=== PATIENT | female | born 1960 | race Caucasian/White ===

== ENCOUNTER → 2016-12-13 | Outpatient (CLI) | payer OTHER ==
[~2016-12-13] MED LIST: ASPI81TA28 PO; BUPR75TA20 PO; CALC500C70 PO; CALCCHW57 PO; CRAN1TAB PO; DIPH25CA PO; ESCI10TA17 PO; ESOM20CA PO; FAMO20TA11 PO; FOLI1TAB7 PO; GABA-113 PO; HMLI7525 SQ; IBUP-1050 PO; LISI-729 PO; LPT40 PO; MAGN500T15 PO; METF-384 PO; METO1TAB69 PO; MGNO400; MULT-188 PO; MULT-222 PO; NAPR500T3 PO; NVLGI7030 SC; PANT40TA PO; THIA100T11 PO; ZNTT/150 PO
[2016-12-13 19:26] LABS: URINE APPEARANCE CLEAR (CLEAR); URINE BILIRUBIN NEG (NEG); URINE COLOR YELLOW; URINE NITRITE POS (NEG); URINE SPECIFIC GRAVITY 1.044 (1.000-1.030); UROBILINOGEN NEG (NEG)
[2016-12-13 19:27] LABS: MANUAL MICROSCOPIC REQUIRED? NO; REVIEW REQ? YES
[2016-12-13 19:38] LABS: URINE PATH CASTS 0-3 GRANULAR CASTS /lpf (0)
== END | disposition home or self-care (01) ==
LOC: C.LABSPEC 17:36
PROVIDERS: ATTEND Nurse Practitioner Adult Health
DX: R82.90 Unspecified abnormal findings in urine (principal)

== ENCOUNTER 2017-05-01 22:19 | Inpatient (IN) | payer OTHER ==
[~2017-05-01] VITALS: Ht 157.5 cm; Wt 87.9 kg
[~2017-05-01 22:19] MED LIST changes: -CALCCHW57 PO; -DIPH25CA PO; -ESCI10TA17 PO; -ESOM20CA PO; -FAMO20TA11 PO; -HMLI7525 SQ; -IBUP-1050 PO; -LISI-729 PO; -MAGN500T15 PO
--- NOTE | 2017-05-01 22:42 | EMERGENCY ROOM VISIT NOTE ---
History First contact with patient: 22:27 Chief Complaint: CHEST PAIN Stated Complaint: SHARP PAIN WHEN BREATHING, CENTER CHEST PAIN, WEAK History of Present Illness The patient is a 57 year old female who presents to the Emergency Room via private vehicle coming by with complaints of "sharp pain with breathing , center chest, weak". The patient states that she has had indigestion type sensation in the chest after eating for the past one month. She states that tonight, her symptoms were different when around 8:30 she was in bathing, when she developed substernal chest pain, similar to indigestion however she was accompanied by weakness, as well as nausea. She is concerned because her had a heart attack recently, and she is also diabetic, has high blood pressure and high cholesterol. The pain is worse with a deep breath. The pain has slightly subsided, and rates the current substernal chest pain as a 3/10. She did take an 81 mg aspirin today. Review of Systems A complete 10-point Review of Systems was discussed with the patient, with pertinent positives and negatives listed in the History of Present Illness. All remaining Review of Systems questions can be considered negative unless otherwise specified. Past Medical/Surgical History Medical Problems: (1) Backache Nos (2) Diabetes (3) Heart disease (4) Hyperlipidemia (5) Hypertension (6) Idiopathic Scoliosis Family History Cancer Diabetes mellitus Heart disease Hypertension Lung disease Social History Smoking Status: Never Smoker Alcohol Use: heavy Marital Status: Housing Status: lives with family Occupation Status: employed Current/Historical Medications Scheduled Aspirin (Aspirin Ec), 81 MG PO QAM Atorvastatin (Atorvastatin Calcium), 40 MG PO HS Calcium Carbonate-Vitamin D W/ (Calcium 1200), 1 TAB PO DAILY Cranberry (Vaccinium Macrocarp (Cranberry), 125 MG PO DAILY Diphenhydramine Hcl (Allergy Relief), 2 CAP PO DAILY Escitalopram (Lexapro), 10 MG PO HS Esomeprazole Magnesium (Nexium), 20 MG PO DAILY Famotidine (Pepcid), 20 MG PO HS Gabapentin (Neurontin), 600 MG PO TID Insulin Lispro 75/25 (Humalog Mix 75/25), 21 UNITS SQ QAM Insulin Lispro 75/25 (Humalog Mix 75/25), 26 UNITS SQ QPM Lisinopril (Zestril), 5 MG PO DAILY Magnesium (Magnesium), 1 TAB PO DAILY Metformin Hcl (Glucophage), 1,000 MG PO BIDM Metoprolol Succ (Toprol Xl) (Toprol-Xl ), 100 MG PO QPM Multiple Vitamins W/ Minerals (Multi For Her), 1 TAB PO DAILY Scheduled PRN Ibuprofen (Advil), 400 MG PO Q6 PRN for Pain Physical Exam Vital Signs Date Time Temp Pulse Resp B/P (MAP) Pulse Ox O2 Delivery O2 Flow Rate FiO2 05/01/17 23:34 75 18 94 05/01/17 23:31 111/66 05/01/17 23:19 78 20 93 05/01/17 23:04 86 22 93 05/01/17 23:01 131/85 05/01/17 22:58 81 05/01/17 22:56 124/84 05/01/17 22:23 36.4 82 20 134/79 95 Room Air Physical Exam VITAL SIGNS - Vital signs and nursing notes were reviewed. Afebrile, normotensive, non-tachycardic and saturating well on room air 95%. GENERAL -57-year-old female appearing her stated age who is in no acute distress. Communicates well with provider and answers questions appropriately. SKIN - Without rashes. No petechial rashes. HEAD - NC/AT. EYES - PERRL with EOMI bilaterally. Sclera anicteric. EARS - No deformities of external structures noted on gross examination bilaterally. NOSE - Midline and without cyanosis. No epistaxis or purulent drainage noted. MOUTH/OROPHARYNX - Without perioral cyanosis. No evidence of ketone odor. LUNGS - Chest wall symmetric without accessory muscle use, intercostals retractions, or central cyanosis. Normal vesicular breath sounds CTA B/L. No wheezes, rales, or rhonchi appreciated. CARDIAC - RRR with S1/S2. No murmur, rubs, or gallops appreciated. ABDOMEN - Abdominal contour without pulsations or visible masses. BS normoactive all four quadrants. No tenderness, palpable masses, hepatosplenomegaly, or ascites noted. EXTREMITIES - No clubbing or peripheral cyanosis. NEUROLOGIC - Cranial nerves II through XII grossly intact. PSYCH - A&O.Pt is very pleasant and interacts well with examiner. Medical Decision & Procedures ER Provider Diagnostic Interpretation: CHEST ONE VIEW PORTABLE CLINICAL HISTORY: Chest pain dyspnea COMPARISON STUDY: 02/15/2016 FINDINGS: The bones soft tissues and hemidiaphragms are normal. The cardiomediastinal silhouette is normal. The lungs are clear. The pulmonary vasculature is normal. IMPRESSION: Negative chest. The above report was generated using voice recognition software. It may contain grammatical, syntax or spelling errors. Electronically signed by: Kian Damon M.D. 05/01/2017 10:50 PM Dictated Date/Time: 05/01/2017 10:50 PM Laboratory Results 05/01/17 23:10 Red Blood Count 4.76, Mean Corpuscular Volume 87.0, Mean Corpuscular Hemoglobin 28.6, Mean Corpuscular Hemoglobin Concent 32.9, Mean Platelet Volume 12.2, Neutrophils (%) (Auto) 59.2, Lymphocytes (%) (Auto) 30.4, Monocytes (%) (Auto) 7.0, Eosinophils (%) (Auto) 2.9, Basophils (%) (Auto) 0.3, Neutrophils # (Auto) 5.74, Lymphocytes # (Auto) 2.95, Monocytes # (Auto) 0.68, Eosinophils # (Auto) 0.28, Basophils # (Auto) 0.03 05/01/17 23:10 Test 05/01/17 23:10 05/01/17 23:13 White Blood Count 9.70 K/uL (4.8-10.8) Red Blood Count 4.76 M/uL (4.2-5.4) Hemoglobin 13.6 g/dL (12.0-16.0) Hematocrit 41.4 % (37-47) Mean Corpuscular Volume 87.0 fL (80-100) Mean Corpuscular Hemoglobin 28.6 pg (25-34) Mean Corpuscular Hemoglobin Concent 32.9 g/dl (32-36) Platelet Count 251 K/uL (130-400) Mean Platelet Volume 12.2 fL (7.4-10.4) Neutrophils (%) (Auto) 59.2 % Lymphocytes (%) (Auto) 30.4 % Monocytes (%) (Auto) 7.0 % Eosinophils (%) (Auto) 2.9 % Basophils (%) (Auto) 0.3 % Neutrophils # (Auto) 5.74 K/uL (1.4-6.5) Lymphocytes # (Auto) 2.95 K/uL (1.2-3.4) Monocytes # (Auto) 0.68 K/uL (0.11-0.59) Eosinophils # (Auto) 0.28 K/uL (0-0.5) Basophils # (Auto) 0.03 K/uL (0-0.2) RDW Standard Deviation 40.8 fL (36.4-46.3) RDW Coefficient of Variation 12.7 % (11.5-14.5) Immature Granulocyte % (Auto) 0.2 % Immature Granulocyte # (Auto) 0.02 K/uL (0.00-0.02) Anion Gap 8.0 mmol/L (3-11) Est Creatinine Clear Calc Drug Dose 77.8 ml/min Estimated GFR () 93.5 Estimated GFR (Non- 80.7 BUN/Creatinine Ratio 18.8 (10-20) Calcium Level 9.5 mg/dl (8.5-10.1) Magnesium Level 1.5 mg/dl (1.8-2.4) Total Bilirubin 0.3 mg/dl (0.2-1) Aspartate Amino Transf (AST/SGOT) 12 U/L (15-37) Alanine Aminotransferase (ALT/SGPT) 24 U/L (12-78) Alkaline Phosphatase 116 U/L (45-117) Total Protein 7.1 gm/dl (6.4-8.2) Albumin 3.6 gm/dl (3.4-5.0) Globulin 3.5 gm/dl (2.5-4.0) Albumin/Globulin Ratio 1.0 (0.9-2) Thyroid Stimulating Hormone (TSH) 2.640 uIu/ml (0.300-4.500) Bedside Troponin I < 0.030 ng/ml (0-0.045) Medical Decision Patient was seen and evaluated as above. After obtaining a thorough history and physical examination IV access was initiated, and the above workup was performed. She presents to us today with chest pain. History is concerning for that of reflux, and ACS. Initial troponin is 0.00. Bedside EKG reveals normal sinus rhythm. This was at a rate of 73 bpm. No ectopy or ischemic change. Previous record was reviewed, and she has an EF around 30% as of 2016 test.. She has history of hypertension, high cholesterol as well as diabetes. Her glucose here is 437. 10 units of insulin were ordered. GI cocktail was ordered. CBC reveals no leukocytosis or anemia. CMP reveals no concerning electrolyte abnormality. Magnesium is low at 1.5. TSH unremarkable. Chest x- ray negative for acute process. Radiology results as above. Her underlying comorbidities, to include hypertension, high cholesterol, diabetes and EF 30% is concerning that for potential cardiac event, therefore do believe that inpatient management is warranted. The case was discussed with ED attending physician, and subsequently the hospitalist. Please refer to further documentation regarding her care. In evaluation treatment this patient the following differential diagnoses entertained: DKA, NC, PE, GERD, among others. Impression Primary Impression: Chest wall pain Additional Impression: Hyperglycemia Departure Information Dispostion Admitted as an inpatient Condition FAIR Referrals Whit Kline DO (PCP) Patient Instructions [facility] Problem Qualifiers
--- NOTE | 2017-05-01 22:51 | DIAGNOSTIC IMAGING REPORT ---
CHEST ONE VIEW PORTABLE CLINICAL HISTORY: Chest pain dyspnea COMPARISON STUDY: 02/15/2016 FINDINGS: The bones soft tissues and hemidiaphragms are normal. The cardiomediastinal silhouette is normal. The lungs are clear. The pulmonary vasculature is normal. IMPRESSION: Negative chest. The above report was generated using voice recognition software. It may contain grammatical, syntax or spelling errors. Electronically signed by: Kian Damon M.D. 05/01/2017 10:50 PM Dictated Date/Time: 05/01/2017 10:50 PM
[2017-05-01] MEDS ORDERED: DIPH25CA PO (23:06)
[2017-05-01] MEDS ORDERED: FAMO20TA11 PO (23:06)
[2017-05-01] MEDS ORDERED: ESOM20CA PO (23:06)
[2017-05-01] MEDS ORDERED: LISI-729 PO (23:06)
[2017-05-01] MEDS ORDERED: ESCI10TA17 PO (23:06)
[2017-05-01] MEDS ORDERED: CALCCHW57 PO (23:06)
[2017-05-01] MEDS ORDERED: HMLI7525 SQ ×2 (23:06)
[2017-05-01] MEDS ORDERED: IBUP-1050 PO (23:06)
[2017-05-01] MEDS ORDERED: MAGN500T15 PO (23:06)
[2017-05-01 23:21] LABS: BASO % 0.3 %; BASO ABS # 0.03 K/uL (0-0.2); COMPLETE YES; EOS % 2.9 %; HEMATOCRIT 41.4 % (37-47); IG% 0.2 %; LYMPH % 30.4 %; LYMPH ABS # 2.95 K/uL (1.2-3.4); MEAN CORPUSCULAR HEMOGLOBIN 28.6 pg (25-34); MEAN CORPUSCULAR HGB CONC 32.9 g/dl (32-36); MEAN PLATELET VOLUME 12.2 fL (7.4-10.4); NEUT % 59.2 %; PLATELET COUNT 251 K/uL (130-400); RED BLOOD COUNT 4.76 M/uL (4.2-5.4)
[2017-05-01] MEDS ORDERED: GI COCKTAIL PO STA (23:48)
[2017-05-01 23:52] LABS: BUN/CREATININE RATIO 18.8 (10-20); CALCIUM 9.5 mg/dl (8.5-10.1); CREATININE 0.8 mg/dl (0.60-1.20); MAGNESIUM 1.5 mg/dl (1.8-2.4); POTASSIUM 4.6 mmol/L (3.5-5.1); THYROID STIMULATING HORMONE 2.64 uIu/ml (0.300-4.500)
[2017-05-02] MEDS ORDERED: NovoLIN-R INSULIN PER UNIT CHARGE IV STA (00:01)
[2017-05-02] MEDS ORDERED: INSULIN HUMAN REGULAR PER UNIT 10 UNITS in SYRINGE 9.9 ML IV STA (00:19)
[2017-05-02] MEDS ORDERED: ALUMINUM/MAGNESIUM SUSP 30 ML UDC ONE (00:20)
[2017-05-02] MEDS ORDERED: LIDOCAINE HCL 2% VISC SOLN 20 ML UDC ONE (00:20)
[2017-05-02] MEDS ORDERED: MAGNESIUM HYDROXIDE SUSP 30 ML UDC PO PRN (00:30)
[2017-05-02] MEDS ORDERED: POLYETHYLENE (MIRALAX) 17 GM PACK PO PRN (00:30)
[2017-05-02] MEDS ORDERED: ONDANSETRON INJ 2 MG/ML 2 ML VIAL IV PRN (00:30)
[2017-05-02] MEDS ORDERED: ACETAMINOPHEN 325 MG TAB PO PRN (00:30)
[2017-05-02] MEDS ORDERED: ZOLPIDEM TARTRATE 5 MG TAB PO PRN (00:30)
[2017-05-02] MEDS ORDERED: ALUMINUM/MAGNESIUM/SIMETH (MAALOX MAX) 30 ML UDC PO PRN (00:30)
[2017-05-02] MEDS ORDERED: NITROGLYCERIN 0.4 MG SL PER TAB CHARGE SL PRN (00:30)
--- NOTE | 2017-05-02 00:44 | History and Physical ---
History & Physical Date & Time of Service: May 02, 2017 at 00:36 Chief Complaint: Sharp Pain When Breathing, Center Chest Pain, Weak Primary Care Physician: Whit Kline DO History of Present Illness Source: patient, spouse Mrs Rachel is a 57-year-old female with hypertension, diabetes, history of nonischemic cardiomyopathy in 2016 who presents with chest pain earlier today. She reports it was sudden onset, occurred while she was at rest, did not radiate , and felt sharp and severe. She feels that nothing given in the ER he has worked. She thinks it is worse than her usual indigestion pain, which is been going on for the last month. She reports she has also been very bad about taking her insulin in general, and was not surprised that her sugar was over 400. She is concerned that she did have a heart attack as her recently had one, and she has risk factors as noted above. She reports her mom also had heart disease and from CHF. In the last admission in 2015, she was in DKA and her ejection fraction was found to be 30%. 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 She does follow with Dr. Coy and is meant to see him in May. She reports she has not had an echocardiogram recently. Past Medical/Surgical History Medical Problems: (1) Backache Nos Status: Chronic (2) Diabetes Status: Chronic (3) Heart disease Status: Chronic (4) Hyperlipidemia Status: Chronic (5) Hypertension Status: Chronic (6) Idiopathic Scoliosis Status: Chronic Past surgical history: none Family History Cancer Diabetes mellitus Heart disease Hypertension Lung disease Social History Smoking Status: Never Smoker Smokeless Tobacco Use: No Alcohol Use: none Drug Use: none Marital Status: Housing status: lives with family Occupational Status: employed Immunizations History of Influenza Vaccine: Unknown History of Tetanus Vaccine?: Unknown History of Pneumococcal: Unknown History of Hepatitis B Vaccine: Unknown Multi-Drug Resistant Organisms History of MDRO: No Allergies Coded Allergies: No Known Allergies (Unverified , 02/23/16) Home Medications Scheduled Aspirin (Aspirin Ec), 81 MG PO QAM Atorvastatin (Atorvastatin Calcium), 40 MG PO HS Calcium Carbonate-Vitamin D W/ (Calcium 1200), 1 TAB PO DAILY Cranberry (Vaccinium Macrocarp (Cranberry), 125 MG PO DAILY Diphenhydramine Hcl (Allergy Relief), 2 CAP PO DAILY Escitalopram (Lexapro), 10 MG PO HS Esomeprazole Magnesium (Nexium), 20 MG PO DAILY Famotidine (Pepcid), 20 MG PO HS Gabapentin (Neurontin), 600 MG PO TID Insulin Lispro 75/25 (Humalog Mix 75/25), 21 UNITS SQ QAM Insulin Lispro 75/25 (Humalog Mix 75/25), 26 UNITS SQ QPM Lisinopril (Zestril), 5 MG PO DAILY Magnesium (Magnesium), 1 TAB PO DAILY Metformin Hcl (Glucophage), 1,000 MG PO BIDM Metoprolol Succ (Toprol Xl) (Toprol-Xl ), 100 MG PO QPM Multiple Vitamins W/ Minerals (Multi For Her), 1 TAB PO DAILY Scheduled PRN Ibuprofen (Advil), 400 MG PO Q6 PRN for Pain Review of Systems See HPI for pertinent positives & negatives. A total of 10 systems reviewed and were otherwise negative. Physical Exam Vital Signs Date Time Temp Pulse Resp B/P (MAP) Pulse Ox O2 Delivery O2 Flow Rate FiO2 05/02/17 00:24 77 15 93 05/02/17 00:09 80 20 94 05/02/17 00:01 113/99 05/01/17 23:54 80 14 93 05/01/17 23:39 75 20 94 05/01/17 23:34 75 18 94 05/01/17 23:31 111/66 05/01/17 23:19 78 20 93 05/01/17 23:04 86 22 93 05/01/17 23:01 131/85 05/01/17 22:58 81 05/01/17 22:56 124/84 05/01/17 22:23 36.4 82 20 134/79 95 Room Air General Appearance: WD/WN, no apparent distress Head: normocephalic, atraumatic Eyes: normal inspection, PERRL ENT: hearing grossly normal Neck: supple, no JVD Respiratory/Chest: lungs clear, normal breath sounds, no respiratory distress Cardiovascular: regular rate, rhythm, no murmur Abdomen/GI: normal bowel sounds, non tender, soft Back: no CVA tenderness, no muscle spasm, normal range of motion Extremities/Musculoskelatal: no calf tenderness, no pedal edema Neurologic/Psych: alert, normal mood/affect, oriented x 3 Skin: no rash Diagnostics Laboratory Results Results Past 24 Hours Test 05/01/17 23:10 05/01/17 23:13 Range/Units White Blood Count 9.70 4.8-10.8 K/uL Red Blood Count 4.76 4.2-5.4 M/uL Hemoglobin 13.6 12.0-16.0 g/dL Hematocrit 41.4 37-47 % Mean Corpuscular Volume 87.0 80-100 fL Mean Corpuscular Hemoglobin 28.6 25-34 pg Mean Corpuscular Hemoglobin Concent 32.9 32-36 g/dl Platelet Count 251 130-400 K/uL Mean Platelet Volume 12.2 7.4-10.4 fL Neutrophils (%) (Auto) 59.2 % Lymphocytes (%) (Auto) 30.4 % Monocytes (%) (Auto) 7.0 % Eosinophils (%) (Auto) 2.9 % Basophils (%) (Auto) 0.3 % Neutrophils # (Auto) 5.74 1.4-6.5 K/uL Lymphocytes # (Auto) 2.95 1.2-3.4 K/uL Monocytes # (Auto) 0.68 0.11-0.59 K/uL Eosinophils # (Auto) 0.28 0-0.5 K/uL Basophils # (Auto) 0.03 0-0.2 K/uL RDW Standard Deviation 40.8 36.4-46.3 fL RDW Coefficient of Variation 12.7 11.5-14.5 % Immature Granulocyte % (Auto) 0.2 % Immature Granulocyte # (Auto) 0.02 0.00-0.02 K/uL Sodium Level 137 136-145 mmol/L Potassium Level 4.6 3.5-5.1 mmol/L Chloride Level 98 98-107 mmol/L Carbon Dioxide Level 31 21-32 mmol/L Anion Gap 8.0 3-11 mmol/L Blood Urea Nitrogen 15 7-18 mg/dl Creatinine 0.80 0.60-1.20 mg/dl Est Creatinine Clear Calc Drug Dose 77.8 ml/min Estimated GFR () 93.5 Estimated GFR (Non- 80.7 BUN/Creatinine Ratio 18.8 10-20 Random Glucose 437 70-99 mg/dl Calcium Level 9.5 8.5-10.1 mg/dl Magnesium Level 1.5 1.8-2.4 mg/dl Total Bilirubin 0.3 0.2-1 mg/dl Aspartate Amino Transf (AST/SGOT) 12 15-37 U/L Alanine Aminotransferase (ALT/SGPT) 24 12-78 U/L Alkaline Phosphatase 116 45-117 U/L Total Protein 7.1 6.4-8.2 gm/dl Albumin 3.6 3.4-5.0 gm/dl Globulin 3.5 2.5-4.0 gm/dl Albumin/Globulin Ratio 1.0 0.9-2 Thyroid Stimulating Hormone (TSH) 2.640 0.300-4.500 uIu/ml Bedside Troponin I < 0.030 0-0.045 ng/ml CXR normal Normal EKG Impression Assessment and Plan 57 yo F with risk factors for cardiac disease including poorly controlled diabetes & hypertension who presents with chest pain - differential is ACS versus GERD Chest pain - Trend cardiac enzymes - Telemetry monitoring - EKG in AM - Continue daily aspirin, Beta katerina, and KOKO-I, and statin History of cardiomyopathy - Repeat echocardiogram in the a.m. Type 2 diabetes - She is on Insulin 75/25 at home, we will hold this for now - Hold Metformin - Lantus 15 units BID w/Novolog sliding scale per calculator - Check HbA1c - Diabetes education - Continue gabapentin for neuropathy Hypertension - Continue Toprol XL and Lisinopril GERD - Continue Pepcid - Just received GI cocktail in ED, waiting to see if it worked VTE: Heparin CODE STATUS: Full DISPO: Tele Attending Addendum: I have physically seen and examined this patient, have supervised the medical residents activities, and agree with the H&P as noted above with the following exceptions as noted. The patient is awake, well-developed and adequately nourished, alert and oriented 3, normocephalic and atraumatic, lying in bed and in no acute distress. HEENT--PERRL, EOMI, mucous membranes and oropharynx normal. Neck--supple, no JVD or bruits, thyroid normal, trachea midline, no adenopathy. Heart--normal S1 and S2, no extra beats, no murmurs, rubs or gallops. Lungs--clear bilaterally but decreased breath sounds throughout, no respiratory distress, no accessory muscle use. Abdomen--normal bowel sounds and soft, nontender and nondistended, no hernias or masses, no organomegaly. Extremities--no cyanosis, clubbing or edema. There are good distal pulses b/l. Dermatologic--normal skin turgor, normal color, warm and dry, no abnormal lymph nodes, no rash. Neurologic--cranial nerves II through XII grossly intact, motor and sensory examination normal. Rheumatologic--normal range of motion, nontender, muscles and joints. Psychiatric--normal affect. Assessment and Plan: 1. Precordial chest pain/cardiomyopathy/systolic heart dysfunction with ejection fraction 30%--The patient will be admitted to telemetry for serial cardiac enzymes, cardiac rhythm monitoring and a 2-D echocardiogram with Dopplers. Continue aspirin 81 mg by mouth every morning, lisinopril 5 mg by mouth daily, magnesium daily, metoprolol succinate 100 mg by mouth every afternoon. 2. Poorly controlled diabetes mellitus--the patient admittedly is poor with her diet, does not check her blood sugars frequently enough, and does not take her insulin regularly. She does have admission for DKA last year. Long discussion with the patient regarding the likely possibilities of stroke, heart attack, renal failure requiring dialysis, loss of limb, and premature if she does not make more of an effort to control her diabetes. Current dose of insulin is Humalog mix 7525 21 units subcutaneous in the a.m. 26 units subcutaneous in the p.m. Hold metformin 1000 mg by mouth twice a day. Check hemoglobin A1c. Place on Accu-Cheks before meals and at bedtime with NovoLog coverage per scale. 3. Hyperlipidemia--continue atorvastatin 40 mg by mouth at bedtime, and check a fasting lipid profile. 4. GPN--continue gabapentin 600 mg by mouth 3 times a day. 5. GERD--change Nexium 20 mg by mouth daily to pantoprazole 40 mg by mouth daily and continue famotidine 20 mg by mouth at bedtime. Suspect patient has acute on chronic diabetic gastroparesis associated with poorly controlled diabetes. 6. Depression--continue Lexapro 10 mg by mouth at bedtime. In light of the patient's poor attention to her diabetes mellitus, the dosing of this medication may need to be increased and/or consideration should be given to counseling. Level of Care Telemetry Advanced Directives Existing Advance Directive: No Existing Living Will: No Existing Power of Nail Professional: No Resuscitation Status FULL RESUSCITATION VTE Prophylaxis VTE Risk Assessment Done? Y/N: Yes Risk Level: Moderate Given or contraindicated: SCD's Social Service Consult None Apply Resident Tracking Resident Involvement: Resident Care Provided Care Provided: Adult Hospital Medicine
[2017-05-02] MEDS ORDERED: DEXTROSE 50% 50 ML SYR IV PRN (00:45)
[2017-05-02] MEDS ORDERED: GLUCOSE 10 TABS/TUBE PO PRN (00:45)
[2017-05-02] MEDS ORDERED: GLUCAGON FOR INJ 1 MG VIAL SQ PRN (00:45)
[2017-05-02] MEDS ORDERED: GLUCOSE 40% GEL 15 GM TUBE PO PRN (00:45)
[2017-05-02 00:48] LABS: BETA-HYDROXYBUTYRATE 3.62 mg/dL (0.2-2.81)
[2017-05-02 01:05] VITALS: BP 121/75; PULSE 82; TEMP 36.5; O2SAT 97; BMI 35.0
[2017-05-02 04:36] VITALS: BP 121/57; PULSE 74; TEMP 37.4; O2SAT 95
[2017-05-02 07:06] LABS: PROTHROMBIN TIME (PATIENT) 10.4 SECONDS (9.0-12.0)
[2017-05-02 07:21] LABS: CKMB/CK RATIO 1.3 (0-3.0)
[2017-05-02 07:33] VITALS: BP 129/77; PULSE 75; TEMP 36.5; O2SAT 98
[2017-05-02] MEDS: INSULIN ASPART 100 UNITS/ML 3 ML PEN SC SCH ×3 (08:26→16:41)
[2017-05-02] MEDS: GABAPENTIN 300 MG CAP PO SCH ×2 (08:27→14:03)
[2017-05-02] MEDS ORDERED: CRANBERRY PO SCH (09:00)
[2017-05-02] MEDS ORDERED: PANTOprazole SOD 40 MG TAB PO SCH (09:00)
[2017-05-02] MEDS ORDERED: CALCIUM 600MG + VIT D 400 IU TAB PO SCH (09:00)
[2017-05-02] MEDS ORDERED: INSULIN GLARGINE SOLOSTAR 100 UNITS/ML 3 ML PEN SC SCH (09:00)
[2017-05-02] MEDS ORDERED: LISINOPRIL 5 MG TAB PO SCH (09:00)
[2017-05-02] MEDS ORDERED: MAGNESIUM OXIDE 400 MG TAB PO SCH (09:00)
[2017-05-02] MEDS ORDERED: ASPIRIN 81 MG ECTAB PO SCH (09:00)
--- NOTE | 2017-05-02 09:53 | Discharge Instructions ---
Discharge Instructions Date of Service May 02, 2017. Admission Reason for Admission: Chest Pain, History Of Cardiomyopathy Discharge Discharge Diagnosis / Problem: Gastroesophageal Reflux; Non-cardiac chest pain Discharge Goals Goal(s): Improve function, Improve nutritional status, Prevent Disease Progression Activity Recommendations Activity Limitations: resume your previous activity Lifting Limitations: none Exercise/Sports Limitations: as tolerated Shower/Bathe: no limitations . Instructions / Follow-Up Instructions / Follow-Up You came to the emergency room for chest discomfort that has been persistent for 1 month. Your EKG was normal. We checked your heart enzymes which were fortunately normal and make a heart attack unlikely. Because you have a history of congestive heart failure, we did re-check and echocardiogram which was also fortunately normal. As such you can be discharged back to the care of your primary doctor. Please keep your regular appointment with your cardiology in May. We did note that you blood sugars were elevated when you came in. After discussing this with you, you noted that you do not take your insulin as your are suppose to. Uncontrolled diabetes carries high risk of vascular disease if not controlled including stroke, vision loss, heart disease, kidney disease and neuropathy. We strongly encourage that you take your medications as directed daily. More importantly however is dietary discretion, particularly limiting portion sizes of carbohydrates like bread and pasta and substituting them with fibre rich fruits and vegetables. Medicines can help you control your diabetes but lifestyle and diet are equally important and both work [id number]. As you go home please check your blood sugars at least twice a day, once in the morning before you eat any food and one 2 hours after you have a meal. Your morning sugar should be less than 120 and your sugar 2-hours after meals should be less than 180, and even better less than 150. Keep a log of your blood sugars and bring them with you to your family physician. Given your recent issues with reflux that is not controlled on multiple medications, we will make a referral for you to have an upper endoscopy by our gastroenterology. You will be contacted to schedule this appointment. If your symptoms fail to improve, acutely worsen, please seek medical attention immediately by either calling your primary care provider or going to your nearest emergency department. Otherwise, please see your primary care provider in 3-5 days to ensure that your symptoms continue to improve. Current Hospital Diet Patient's current hospital diet: Diabetes Type 2 Diet Discharge Diet Recommended Diet: Low Sodium Diet (2gm Na), Diabetes Type 2 Diet Procedures Procedures Performed: Echocardiogram Interpretation Summary Name: SHAQUILLE MCINTOSH Study Date: 05/02/2017 06:39 AM BP: 121/57 mmHg Patient Location: [id number] HR: 74 : 1960 (M/d/yyyy) Gender: Female Height: 62 in Age: 57 yrs Ethnicity: [place] Weight: 193 lb Ordering Physician: Lilia Johnson Referring Physician: Self, Referred Performed By: Cynthia Osei RDCS Reason For Study: HX OF CARDIOMYOPATHY BSA: 1.9 m2 Normal biventricular systolic function. Mild concentric left ventricular hypertrophy. Type 1 left ventricular diastolic dysfunction. Normal chamber dimensions. No significant valvular abnormalities. Pending Studies Studies pending at discharge: no Medical Emergencies . Who to Call and When: Medical Emergencies: If at any time you feel your situation is an emergency, please call 911 immediately. . Non-Emergent Contact Non-Emergency issues call your: Primary Care Provider Call Non-Emergent contact if: your pain is not controlled, your pain is worsening, your pain is concerning you . . "Provider Documentation" section prepared by Austin Jung. . VTE Core Measure Inpt VTE Proph given/why not?: SCD's
[2017-05-02 10:55] VITALS: BP 115/59; PULSE 85; TEMP 37.2; O2SAT 94
[2017-05-02 11:28] VITALS: Ht 157.5 cm; Wt 87.9 kg
--- NOTE | 2017-05-02 13:57 | ECHOCARDIOGRAM REPORT ---
*NOTICE TO RECEIVING LIBERTARIAN AGENCY This information is strictly Confidential and protected under [place] law. [place] law prohibits you from making any further disclosure of this information unless further disclosure is expressly permitted by the written consent of the person to whom it pertains or is authorized by law. A general authorization for the release of medical or other information is not sufficient for this purpose. Hospital accepts no responsibility if the information is made available to any other person, INCLUDING THE PATIENT. Interpretation Summary * Name: SHAQUILLE MCINTOSH Study Date: 05/02/2017 06:39 AM BP: 121/57 mmHg * Patient Location: C.2E\S\E203\S\1 HR: 74 * : 1960 (M/d/yyyy) Gender: Female Height: 62 in * Age: 57 yrs Ethnicity: CA Weight: 193 lb * Ordering Physician: Lilia Johnson * Referring Physician: Self, Referred * Performed By: Cynthia Osei RDCS * * Reason For Study: HX OF CARDIOMYOPATHY * BSA: 1.9 m2 * Normal biventricular systolic function. * Mild concentric left ventricular hypertrophy. * Type 1 left ventricular diastolic dysfunction. * Normal chamber dimensions. * No significant valvular abnormalities. Procedure Details * A complete two-dimensional transthoracic echocardiogram was performed (2D, M-mode, Doppler and color flow Doppler). Left Ventricle * The left ventricle is normal in size. * There is mild concentric left ventricular hypertrophy. * Ejection Fraction = 55-60%. * Left ventricular systolic function is normal. * A full diastolic examination was done with clinical findings of Class I diastolic dysfunction. * The left ventricular wall motion is normal. Right Ventricle * The right ventricle is normal in size and function. * The right ventricular systolic function is normal as assessed by tricuspid annular plane systolic excursion (TAPSE) (normal >1.5 cm). Atria * The left atrial size is normal. * Right atrial size is normal. * No ASD detected; PFO is not assessed. Mitral Valve * The mitral valve is normal. * There is no mitral valve stenosis. * There is trace mitral regurgitation. Tricuspid Valve * The tricuspid valve is normal. * There is no tricuspid stenosis. * No tricuspid regurgitation. Aortic Valve * The aortic valve is trileaflet. * The aortic valve opens well. * Aortic stenosis is absent. * No aortic regurgitation is present. Pulmonic Valve * The pulmonic valve is not well seen, but is grossly normal. * There is no pulmonic valvular stenosis. * There is no pulmonic valvular regurgitation. Great Vessels * The aortic root is normal size. Pericardium/Pleural * There is no pericardial effusion. Great Vessels * Normal inferior vena cava diameter and respiratory variation suggests normal central venous pressure. MMode 2D Measurements and Calculations IVSd 1.2 cm IVSs 1.3 cm LVIDd 4.4 cm LVIDs 3.2 cm LVPWd 1.2 cm LVPWs 1.6 cm IVS/LVPW 0.96 FS 27.6 % EDV(Teich) 88.9 ml ESV(Teich) 41.2 ml EF(Teich) 53.7 % EDV(cubed) 86.7 ml ESV(cubed) 33.0 ml EF(cubed) 62.0 % % IVS thick 8.1 % % LVPW thick 34.8 % LV mass(C)d 190.1 grams LV mass(C)dI 101.0 grams/m\S\2 LV mass(C)s 161.5 grams LV mass(C)sI 85.8 grams/m\S\2 SV(Teich) 47.8 ml SI(Teich) 25.4 ml/m\S\2 SV(cubed) 53.8 ml SI(cubed) 28.6 ml/m\S\2 Ao root diam 2.5 cm Ao root area 5.1 cm\S\2 LA dimension 3.2 cm LA/Ao 1.3 LVAd ap4 26.8 cm\S\2 LVLd ap4 7.5 cm EDV(MOD-sp4) 77.3 ml EDV(sp4-el) 81.2 ml LVAs ap4 16.4 cm\S\2 LVLs ap4 6.5 cm ESV(MOD-sp4) 36.0 ml ESV(sp4-el) 35.0 ml EF(MOD-sp4) 53.4 % EF(sp4-el) 56.9 % LVAd ap2 24.9 cm\S\2 LVLd ap2 7.5 cm EDV(MOD-sp2) 66.1 ml EDV(sp2-el) 70.0 ml LVAs ap2 14.7 cm\S\2 LVLs ap2 6.2 cm ESV(MOD-sp2) 28.7 ml ESV(sp2-el) 29.6 ml EF(MOD-sp2) 56.6 % EF(sp2-el) 57.7 % LVLd %diff -0.32 % EDV(MOD-bp) 72.0 ml LVLs %diff -5.29 % ESV(MOD-bp) 31.8 ml EF(MOD-bp) 55.9 % SV(MOD-sp4) 41.2 ml SI(MOD-sp4) 21.9 ml/m\S\2 SV(MOD-sp2) 37.4 ml SI(MOD-sp2) 19.9 ml/m\S\2 SV(MOD-bp) 40.3 ml SI(MOD-bp) 21.4 ml/m\S\2 SV(sp4-el) 46.2 ml SI(sp4-el) 24.5 ml/m\S\2 SV(sp2-el) 40.4 ml SI(sp2-el) 21.4 ml/m\S\2 Doppler Measurements and Calculations MV E max reggie 73.7 cm/sec MV A max reggie 82.5 cm/sec MV E/A 0.89 MV dec time 0.26 sec Ao V2 max 142.5 cm/sec Ao max PG 8.1 mmHg Ao max PG (full) 4.7 mmHg LV V1 max PG 3.4 mmHg LV V1 max 92.6 cm/sec
[2017-05-02] MEDS ORDERED: HEPARIN SOD 5000 UNIT/0.5 ML CARP SQ SCH (14:00)
[2017-05-02 15:20] VITALS: BP 105/63; PULSE 79; TEMP 36.9; O2SAT 97
[2017-05-02 17:52] VITALS: BP 105/63; PULSE 79; TEMP 36.9; O2SAT 97
--- NOTE | 2017-05-02 19:03 | Discharge Summary ---
Discharge Summary Date of Service May 02, 2017. Discharge Summary Admission Date: May 02, 2017 at 00:32 Discharge Date: May 02, 2017 Discharge Disposition: Home Principal Diagnosis: Non-cardiac chest pain, GERD Problems/Secondary Diagnoses: History of non-ischemic cardiomyopathy Immunizations: Have You Had Influenza Vaccine: Unknown History of Tetanus Vaccine?: Unknown History of Pneumococcal: Unknown History of Hepatitis B Vaccine: Unknown Procedures: Interpretation Summary * Name: SHQAUILLE MCINTOSH Study Date: 05/02/2017 06:39 AM BP: 121/57 mmHg * Patient Location: .2E\S\E203\S\1 HR: 74 * : 1960 (M/d/yyyy) Gender: Female Height: 62 in * Age: 57 yrs Ethnicity: CA Weight: 193 lb * Ordering Physician: Lilia Johnson * Referring Physician: Self, Referred * Performed By: Cynthia Osei RDCS * * Reason For Study: HX OF CARDIOMYOPATHY * BSA: 1.9 m2 * Normal biventricular systolic function. * Mild concentric left ventricular hypertrophy. * Type 1 left ventricular diastolic dysfunction. * Normal chamber dimensions. * No significant valvular abnormalities. Medication Reconciliation Continued Medications: Aspirin (Aspirin Ec) 81 Mg Tab 81 MG PO QAM Atorvastatin (Atorvastatin Calcium) 40 Mg Tab 40 MG PO HS Calcium Carbonate-Vitamin D W/ (Calcium 1200) 1 Chw Chw 1 TAB PO DAILY Cranberry (Vaccinium Macrocarp (Cranberry) 125 Mg Tab 125 MG PO DAILY Diphenhydramine Hcl (Allergy Relief) 25 Mg Cap 2 CAP PO DAILY Escitalopram (Lexapro) 10 Mg Tab 10 MG PO HS, TAB Esomeprazole Magnesium (Nexium) 20 Mg Capcr 20 MG PO DAILY, CAP Famotidine (Pepcid) 20 Mg Tab 20 MG PO HS, TAB Gabapentin (Neurontin) 300 Mg Cap 600 MG PO TID, CAP Ibuprofen (Advil) 200 Mg Tab 400 MG PO Q6 PRN for Pain, TAB Insulin Lispro 75/25 (Humalog Mix 75/25) 100 Units/ Inj 21 UNITS SQ QAM, VIAL Insulin Lispro 75/25 (Humalog Mix 75/25) 100 Units/ Inj 26 UNITS SQ QPM, VIAL Lisinopril (Zestril) 5 Mg Tab 5 MG PO DAILY, TAB Magnesium (Magnesium) 500 Mg Tab 1 TAB PO DAILY Metformin Hcl (Glucophage) 1,000 Mg Tab 1000 MG PO BIDM, TAB Metoprolol Succ (Toprol Xl) (Toprol-Xl ) 100 Mg Tabcr 100 MG PO QPM, TAB Multiple Vitamins W/ Minerals (Multi For Her) 1 Tab Tab 1 TAB PO DAILY Discharge Exam A 10 point review of systems was negative unless stated in the hospital course Physical Exam: General Appearance: WD/WN, no apparent distress, + obese Eyes: normal inspection, EOMI ENT: hearing grossly normal, pharynx normal Neck: supple, no adenopathy, no JVD Respiratory/Chest: lungs clear, no respiratory distress Cardiovascular: regular rate, rhythm, no gallop, no murmur Abdomen / GI: normal bowel sounds, non tender, soft Extremities: no calf tenderness, no pedal edema Neurologic/Psychiatric: alert, normal mood/affect, oriented x 3 Skin: normal color, warm/dry, no rash Lymphatic: no adenopathy Hospital Course This is a pleasant 57 year old female with a history of non-ischemic cardiomyopathy, severe GERD, hypertension, diabetes, depression/anxiety who presented to the ED with a month of chest pain. The patient stated that her pain was somewhat reminiscent of her GERD. Troponin and EKG were normal in the ED. She was found to be hyperglycemic in the ED. She was admitted for chest pain rule-out. Her hospital course was as follows Chest pain 2/2 GERD - Normal EKG; troponin negative x 3 - Repeat echocardiogram reveals improvement in EF: report provided above - Pattern of pain stated to be reminiscent of her chronic GERD; unlikely cardiac etiology for chest pain - No medication changes - Reports she has F/U with Dr. Coy in May 2017 History of Non-ischemic cardiomyopathy - Continued Lisinopril and Metoprolol Hyperglycemia and background of type 2 diabetes - BSG 437 on arrival - Patient treated with IV regular insulin - Treated with Lantus and SSI; AC/HS accuchecks - Admits to poor medication compliance; reviewed diabetes home monitoring - Recommended keeping diary and checking BSG in morning and 2 hours after biggest meal - F/U with PCP Severe GERD - Likely cause of chest pain - Advised to limit caffeine and fatty foods - Patient advised to continue home antacids medications - Referral made for outpatient EGD for chronic dyspepsia HTN - Continued Lisinopril HLD - Continued Atorvastatin Patient advised to follow-up with PCP within 1 week of discharge to ensure symptoms are stable and not worsening. Total Time Spent: Less than 30 minutes This includes examination of the patient, discharge planning, medication reconciliation, and communication with other providers. Discharge Instructions Please refer to the electronic Patient Visit Report (Discharge Instructions) for additional information. Additional Copies To Whit Kline DO
[2017-05-02] MEDS ORDERED: ESCITALOPRAM OXALATE 10 MG TAB PO SCH (21:00)
[2017-05-02] MEDS ORDERED: METOPROLOL SUCC 50MG EXT REL TAB PO SCH (21:00)
[2017-05-02] MEDS ORDERED: ATORVASTATIN 40 MG TAB PO SCH (21:00)
[2017-05-02] MEDS ORDERED: FAMOTIDINE 20 MG TAB PO SCH (21:00)
== END 2017-05-02 18:13 | disposition home or self-care (01) | DRG 313 ==
LOC: C.EDB 22:22 → C.2E 05-02 00:32 → ENRESERV 05-02 00:41
PROVIDERS: ADMIT Hospitalist; ATTEND Family Medicine
DX: R07.89 Other chest pain (principal); I42.8 Other cardiomyopathies; K21.9 Gastro-esophageal reflux disease without esophagitis; I11.9 Hypertensive heart disease without heart failure; E11.65 Type 2 diabetes mellitus with hyperglycemia; E11.42 Type 2 diabetes mellitus with diabetic polyneuropathy; E78.5 Hyperlipidemia, unspecified; F32.9 Major depressive disorder, single episode, unspecified; F41.9 Anxiety disorder, unspecified; E66.9 Obesity, unspecified; Z68.35 Body mass index [BMI] 35.0-35.9, adult; Z91.19 Patient's noncompliance with other medical treatment and regimen; Z82.49 Family history of ischemic heart disease and other diseases of the circulatory system; Z79.4 Long term (current) use of insulin; Z79.82 Long term (current) use of aspirin; Z79.84 Long term (current) use of oral hypoglycemic drugs; Z79.899 Other long term (current) drug therapy

== ENCOUNTER → 2017-06-27 | Outpatient (CLI) | payer OTHER ==
[~2017-06-27] MED LIST changes: -BUPR75TA20 PO; -CALC500C70 PO; +CALCCHW57 PO; +DIPH25CA PO; +ESCI10TA17 PO; +ESOM20CA PO; +FAMO20TA11 PO; -FOLI1TAB7 PO; +HMLI7525 SQ; +IBUP-1050 PO; +LISI-729 PO; +MAGN500T15 PO; -MGNO400; -MULT-188 PO; -NAPR500T3 PO; -NVLGI7030 SC; -PANT40TA PO; -THIA100T11 PO; -ZNTT/150 PO
[2017-06-27 12:17] LABS: HEMATOCRIT 40.9 % (37-47); MEAN CELL VOLUME 87.8 fL (80-100); MEAN CORPUSCULAR HEMOGLOBIN 29.6 pg (25-34); MEAN CORPUSCULAR HGB CONC 33.7 g/dl (32-36); MEAN PLATELET VOLUME 13.1 fL (7.4-10.4); PLATELET COUNT 263 K/uL (130-400); RED BLOOD COUNT 4.66 M/uL (4.2-5.4); WHITE BLOOD COUNT 8.34 K/uL (4.8-10.8)
[2017-06-27 12:40] LABS: ALT/SGPT 18 U/L (12-78); BLOOD UREA NITROGEN 14 mg/dl (7-18); BUN/CREATININE RATIO 19.1 (10-20); CARBON DIOXIDE 28 mmol/L (21-32); CHLORIDE 99 mmol/L (98-107); CHOLESTEROL 132 mg/dl (0-200); CREATININE 0.74 mg/dl (0.60-1.20); GLUCOSE 252 mg/dl (70-99); MAGNESIUM 1.6 mg/dl (1.8-2.4); POTASSIUM 4.3 mmol/L (3.5-5.1); SODIUM 134 mmol/L (136-145)
[2017-06-27 12:44] LABS: ALKALINE PHOSPHATASE 103 U/L (45-117); AST/SGOT 15 U/L (15-37); CHOLESTEROL/HDL RATIO 2.3; HDL CHOLESTEROL 58 mg/dl; LDL CHOLESTEROL CALCULATED 59 mg/dl; TRIGLYCERIDES 74 mg/dl (0-150); VERY LOW DENSITY LIPOPROT CALC 15 mg/dl
== END | disposition home or self-care (01) ==
LOC: C.LAB 10:47
PROVIDERS: ATTEND Nurse Practitioner Family
DX: E11.65 Type 2 diabetes mellitus with hyperglycemia (principal); I10 Essential (primary) hypertension; E78.5 Hyperlipidemia, unspecified; Z11.59 Encounter for screening for other viral diseases; I25.10 Atherosclerotic heart disease of native coronary artery without angina pectoris; E83.42 Hypomagnesemia

== ENCOUNTER 2017-07-09 22:14 | Emergency (ER) | payer OTHER ==
[~2017-07-09] VITALS: Ht 157.5 cm; Wt 90.6 kg
[2017-07-09 22:30] VITALS: TEMP 36.5; Ht 157.5 cm; Wt 90.6 kg
[2017-07-09] MEDS ORDERED: SODIUM CHLORIDE 0.9% 1000ML 1,000 ML IV STA ×2 (23:37)
--- NOTE | 2017-07-09 23:39 | EMERGENCY ROOM VISIT NOTE ---
History Report prepared by Liam: Mj Bolivar Under the Supervision of: Dr. Genny Pham D.O. First contact with patient: 23:33 Chief Complaint: HYPOTENSION Stated Complaint: LOW BP History of Present Illness The patient is a 57 year old female who presents to the Emergency Room with complaints of persistent fatigue that the patient has been experiencing for the past three days. Per the patient's the patient has spent the majority of the past three days laying in bed, and has been increasingly lethargic. The patient notes that she began to feel increasingly weak today and had a systolic blood pressure reading in the 80s. She admits that she has not been eating well lately, or taking her insulin. Her blood sugar levels were in the 300s yesterday. The patient also has a history of tremors and acid reflux. Source of History: patient, spouse/significant other Onset: 3 days PHARMACY SALES ASSISTANT Position: other (Global) Quality: other (Weakness) Timing: worsening Associated Symptoms: + fatigue, + weakness Review of Systems See HPI for pertinent positives & negatives. A total of 10 systems reviewed and were otherwise negative. Past Medical & Surgical Medical Problems: (1) Backache Nos (2) Diabetes (3) Heart disease (4) History of cardiomyopathy (5) Hyperlipidemia (6) Hypertension (7) Idiopathic Scoliosis Family History Cancer Diabetes mellitus Heart disease Hypertension Lung disease Social History Smoking Status: Never Smoker Alcohol Use: heavy Drug Use: none Marital Status: Housing Status: lives with family Occupation Status: employed Current/Historical Medications Scheduled Aspirin (Aspirin Ec), 81 MG PO QAM Atorvastatin (Atorvastatin Calcium), 40 MG PO HS Calcium Carbonate-Vitamin D W/ (Calcium 1200), 1 TAB PO DAILY Ciprofloxacin Hcl (Cipro), 500 MG PO BID Cranberry (Vaccinium Macrocarp (Cranberry Highly Concentr), 450 MG PO DAILY Diphenhydramine Hcl (Allergy Relief), 2 CAP PO DAILY Diphenhydramine Hcl (Benadryl Allergy), 50 MG PO HS Escitalopram (Lexapro), 10 MG PO HS Gabapentin (Neurontin), 600 MG PO TID Insulin Lispro 75/25 (Humalog Mix 75/25), 24 UNITS SQ QAM Insulin Lispro 75/25 (Humalog Mix 75/25), 28 UNITS SQ QPM Lisinopril (Zestril), 5 MG PO DAILY Magnesium (Magnesium), 1 TAB PO DAILY Metformin Hcl (Glucophage), 1,000 MG PO BIDM Metoprolol Succ (Toprol Xl) (Toprol-Xl ), 100 MG PO QPM Multiple Vitamins W/ Minerals (Multi For Her), 1 TAB PO DAILY Omeprazole (Prilosec), 20 MG PO BID Scheduled PRN Ibuprofen (Advil), 400 MG PO Q6 PRN for Pain Allergies Coded Allergies: No Known Allergies (Unverified , 07/10/17) Physical Exam Vital Signs Date Time Temp Pulse Resp B/P (MAP) Pulse Ox O2 Delivery O2 Flow Rate FiO2 07/10/17 02:18 68 20 118/69 93 07/10/17 01:00 66 18 123/62 95 Room Air 07/10/17 00:30 66 17 117/66 94 Room Air 07/10/17 00:00 70 20 122/71 95 Room Air 07/09/17 23:53 75 07/09/17 22:30 36.5 75 16 114/75 95 Room Air Physical Exam HEENT: Head - normocephalic and atraumatic Pupils are equal, round, and reactive to light. Extraocular eye muscles are intact, and sclera are anicteric. Nose - moist nasal mucosa without discharge. Mouth - moist buccal mucosa. Oropharynx is nonerythematous and there is no tonsillar exudate or edema noted. Neck: Supple; no JVD, nuchal rigidity, cervical lymphadenopathy. Heart: Regular rate and rhythm. There is a normal S1 and S2 with no murmurs, clicks, or gallops appreciated. Lungs: Clear to auscultation bilaterally with no wheezes, rales, or rhonchi. Abdomen: Soft, completely nontender, nondistended, with good bowel sounds. There are no palpable pulsatile masses or hepatosplenomegaly. There is no guarding, rigidity, or rebound noted. Extremities: No evidence of cyanosis, clubbing, or edema. There are easily palpable peripheral pulses. Skin: Skin is pale. warm and dry with good turgor and no rashes. Medical Decision & Procedures Laboratory Results 07/09/17 23:55 Red Blood Count 4.34, Mean Corpuscular Volume 88.2, Mean Corpuscular Hemoglobin 28.6, Mean Corpuscular Hemoglobin Concent 32.4, Mean Platelet Volume 10.8, Neutrophils (%) (Auto) 55.6, Lymphocytes (%) (Auto) 32.5, Monocytes (%) (Auto) 8.4, Eosinophils (%) (Auto) 2.8, Basophils (%) (Auto) 0.4, Neutrophils # (Auto) 6.59, Lymphocytes # (Auto) 3.84, Monocytes # (Auto) 0.99, Eosinophils # (Auto) 0.33, Basophils # (Auto) 0.05 07/09/17 23:55 Test 07/09/17 00:00 07/09/17 23:54 07/09/17 23:55 Urine Color YELLOW Urine Appearance CLOUDY (CLEAR) Urine pH 5.0 (4.5-7.5) Urine Specific [place] 1.023 (1.000-1.030) Urine Protein 1+ (NEG) Urine Glucose (UA) 3+ (NEG) Urine Ketones NEG (NEG) Urine Occult Blood NEG (NEG) Urine Nitrite NEG (NEG) Urine Bilirubin NEG (NEG) Urine Urobilinogen NEG (NEG) Urine Leukocyte Esterase MODERATE (NEG) Urine WBC (Auto) >30 /hpf (0-5) Urine RBC (Auto) 0-4 /hpf (0-4) Urine Hyaline Casts (Auto) 5-10 /lpf (0-5) Urine Epithelial Cells (Auto) 20-30 /lpf (0-5) Urine Bacteria (Auto) 1+ (NEG) Bedside Glucose 162 mg/dl (70-90) White Blood Count 11.83 K/uL (4.8-10.8) Red Blood Count 4.34 M/uL (4.2-5.4) Hemoglobin 12.4 g/dL (12.0-16.0) Hematocrit 38.3 % (37-47) Mean Corpuscular Volume 88.2 fL (80-100) Mean Corpuscular Hemoglobin 28.6 pg (25-34) Mean Corpuscular Hemoglobin Concent 32.4 g/dl (32-36) Platelet Count 300 K/uL (130-400) Mean Platelet Volume 10.8 fL (7.4-10.4) Neutrophils (%) (Auto) 55.6 % Lymphocytes (%) (Auto) 32.5 % Monocytes (%) (Auto) 8.4 % Eosinophils (%) (Auto) 2.8 % Basophils (%) (Auto) 0.4 % Neutrophils # (Auto) 6.59 K/uL (1.4-6.5) Lymphocytes # (Auto) 3.84 K/uL (1.2-3.4) Monocytes # (Auto) 0.99 K/uL (0.11-0.59) Eosinophils # (Auto) 0.33 K/uL (0-0.5) Basophils # (Auto) 0.05 K/uL (0-0.2) RDW Standard Deviation 42.1 fL (36.4-46.3) RDW Coefficient of Variation 12.9 % (11.5-14.5) Immature Granulocyte % (Auto) 0.3 % Immature Granulocyte # (Auto) 0.03 K/uL (0.00-0.02) Anion Gap 8.0 mmol/L (3-11) Est Creatinine Clear Calc Drug Dose 59.8 ml/min Estimated GFR () 66.6 Estimated GFR (Non- 57.4 BUN/Creatinine Ratio 13.5 (10-20) Calcium Level 8.4 mg/dl (8.5-10.1) Total Bilirubin 0.4 mg/dl (0.2-1) Aspartate Amino Transf (AST/SGOT) 17 U/L (15-37) Alanine Aminotransferase (ALT/SGPT) 20 U/L (12-78) Alkaline Phosphatase 102 U/L (45-117) Total Creatine Kinase 68 U/L (26-192) Creatine Kinase MB 0.8 ng/ml (0.5-3.6) Creatine Kinase MB Ratio 1.2 (0-3.0) Troponin I < 0.015 ng/ml (0-0.045) Total Protein 7.1 gm/dl (6.4-8.2) Albumin 3.6 gm/dl (3.4-5.0) Globulin 3.5 gm/dl (2.5-4.0) Albumin/Globulin Ratio 1.0 (0.9-2) Thyroid Stimulating Hormone (TSH) 3.360 uIu/ml (0.300-4.500) Chemistry Specimen Hemolysis Laboratory results per my review. Medications Administered Medications (Trade) Dose Ordered Sig/Breann Route Start Time Stop Time Status Last Admin Dose Admin Sodium Chloride 1,000 ml @ 999 mls/hr Q1H1M STAT IV 07/09/17 23:37 10/16/17 00:37 DC 07/10/17 00:05 999 MLS/HR Sodium Chloride 1,000 ml @ 250 mls/hr Q4H STAT IV 07/09/17 23:37 07/10/17 03:36 DC 07/10/17 01:15 250 MLS/HR Ciprofloxacin (Cipro Tab) 500 mg NOW STAT PO 07/10/17 01:55 07/10/17 01:56 DC 07/10/17 01:59 500 MG Procedure Medications Ordered: Sodium Chloride, Ciprofloxacin. ECG Indication: weakness Rate (beats per minute): 72 Rhythm: normal sinus Findings: ST depression (Lead I and AVL) Comparison ECG Date: 11/20/2014 Change: ST depression is new. ED Course 2334: Past medical records reviewed. The patient was evaluated in room B9. A complete history and physical exam was performed. An IV lock was initiated and labs were drawn as above. A urine specimen was obtained. 2337: Ordered Sodium Chloride 1000 mL @ 999 mL/hr IV, Sodium Chloride 1000 mL @ 250 mL/hr IV. 0141: Upon reevaluation, the patient had improvement of her symptoms. I discussed findings and results with her. She verbalized agreement of the treatment plan. The patient was discharged home. I did review previous urine cultures and she has had Klebsiella in her urine previously which was susceptible to Cipro. I will start her on oral Cipro 0155: Ordered Ciprofloxacin 500 mg PO. Medical Decision The patient is a 57 year old female who presents to the Emergency Department for fatigue and hypotension. Differential Diagnosis include; Dehydration, DKA, diabetic hyperglycemia, UTI, sepsis, and hypoglycemia. Laboratory Studies were reviewed and show; White count of 11.8, Stable hemoglobin and hematocrit, normal TSH, glucose of 154, sodium of 132, normal renal function. Urinalysis was reviewed and shows signs of infection with >30 white cells, 1+ bacteria, and moderate leukocyte esterase. It seems that the patient is suffering from urinary tract infection. This most likely caused her fatigue and weakness. However, I did explain to her the importance of following her blood sugars and treating herself with insulin as directed by her doctor. The urine will be sent for culture and she was asked to follow-up with them. Medication Reconcilliation Current Medication List: was personally reviewed by me Blood Pressure Screening Patient's blood pressure: Normal blood pressure Impression Primary Impression: Lethargy Additional Impressions: Noncompliance with medications UTI (urinary tract infection) Hyperglycemia Scribe Attestation The scribe's documentation has been prepared under my direction and personally reviewed by me in its entirety. I confirm that the note above accurately reflects all work, treatment, procedures, and medical decision making performed by me. Departure Information Dispostion Home / Self-Care Prescriptions Ciprofloxacin Hcl (CIPRO) 500 Mg Tab 500 MG PO BID, #14 TAB Prov: Genny Pham D.O. 07/10/17 Referrals Whit Kline DO (PCP) Forms HOME CARE DOCUMENTATION FORM, IMPORTANT VISIT INFORMATION, WORK / SCHOOL INSTRUCTIONS Patient Instructions My [facility] Additional Instructions You must take your blood sugar and dose insulin accordingly. Cipro - twice a day for 7 days Take plenty of clear liquids Follow up with PCP today for a recheck Problem Qualifiers Additional Impressions: UTI (urinary tract infection) Urinary tract infection type: acute cystitis Hematuria presence: without hematuria Qualified Codes: N30.00 - Acute cystitis without hematuria
[2017-07-10 00:04] LABS: BASO % 0.4 %; BASO ABS # 0.05 K/uL (0-0.2); COMPLETE YES; EOS % 2.8 %; HEMATOCRIT 38.3 % (37-47); IG% 0.3 %; LYMPH % 32.5 %; LYMPH ABS # 3.84 K/uL (1.2-3.4); MEAN CELL VOLUME 88.2 fL (80-100); MEAN CORPUSCULAR HEMOGLOBIN 28.6 pg (25-34); MEAN CORPUSCULAR HGB CONC 32.4 g/dl (32-36); MEAN PLATELET VOLUME 10.8 fL (7.4-10.4); MONO % 8.4 %; NEUT % 55.6 %; PLATELET COUNT 300 K/uL (130-400); RED BLOOD COUNT 4.34 M/uL (4.2-5.4); WHITE BLOOD COUNT 11.83 K/uL (4.8-10.8)
[2017-07-10 00:21] LABS: URINE APPEARANCE CLOUDY (CLEAR); URINE BILIRUBIN NEG (NEG); URINE COLOR YELLOW; URINE EPITHELIAL CELL AUTO 20-30 /lpf (0-5); URINE NITRITE NEG (NEG); URINE SPECIFIC GRAVITY 1.023 (1.000-1.030); UROBILINOGEN NEG (NEG)
[2017-07-10 00:24] LABS: MANUAL MICROSCOPIC REQUIRED? NO; REVIEW REQ? YES
[2017-07-10 00:33] LABS: ALT/SGPT 20 U/L (12-78); AST/SGOT 17 U/L (15-37); BLOOD UREA NITROGEN 14 mg/dl (7-18); BUN/CREATININE RATIO 13.5 (10-20); CALCIUM 8.4 mg/dl (8.5-10.1); CARBON DIOXIDE 28 mmol/L (21-32); CHLORIDE 96 mmol/L (98-107); CREATININE 1.06 mg/dl (0.60-1.20); GLUCOSE 154 mg/dl (70-99); POTASSIUM 4.3 mmol/L (3.5-5.1); SODIUM 132 mmol/L (136-145)
[2017-07-10 00:45] LABS: ALKALINE PHOSPHATASE 102 U/L (45-117); CKMB/CK RATIO 1.2 (0-3.0)
[2017-07-10] MEDS ORDERED: CRAN1CAP PO (01:23)
[2017-07-10] MEDS ORDERED: DIPH1TAB PO (01:24)
[2017-07-10] MEDS ORDERED: PRLSR20 PO (01:24)
[2017-07-10] MEDS ORDERED: CIPROFLOXACIN 500 MG TAB PO STA (01:55)
[2017-07-10] MEDS ORDERED: CIPR1TAB10 PO (02:13)
[2017-07-10 02:18] VITALS: BP 118/69; PULSE 68; O2SAT 93
== END 2017-07-10 02:20 | disposition home or self-care (01) ==
LOC: C.EDB 22:15
DX: R53.83 Other fatigue (principal); N30.00 Acute cystitis without hematuria; E11.65 Type 2 diabetes mellitus with hyperglycemia; Z91.14 Patient's other noncompliance with medication regimen; K21.9 Gastro-esophageal reflux disease without esophagitis; E78.5 Hyperlipidemia, unspecified; I10 Essential (primary) hypertension; Z83.3 Family history of diabetes mellitus; Z82.49 Family history of ischemic heart disease and other diseases of the circulatory system; Z79.4 Long term (current) use of insulin; Z79.82 Long term (current) use of aspirin; Z79.84 Long term (current) use of oral hypoglycemic drugs; Z79.899 Other long term (current) drug therapy

== ENCOUNTER → 2017-07-19 | Outpatient (CLI) | payer OTHER ==
[~2017-07-19] MED LIST changes: +CIPR1TAB10 PO; +CRAN1CAP PO; -CRAN1TAB PO; +DIPH1TAB87 PO; -ESOM20CA PO; -FAMO20TA11 PO; +METO100T44 PO; -METO1TAB69 PO; +PRLSR20 PO
[2017-07-19 12:43] LABS: URINE APPEARANCE CLEAR (CLEAR); URINE BILIRUBIN NEG (NEG); URINE COLOR YELLOW; URINE EPITHELIAL CELL AUTO >30 /lpf (0-5); URINE NITRITE NEG (NEG); URINE PH 6.5 (4.5-7.5); URINE SPECIFIC GRAVITY 1.012 (1.000-1.030); UROBILINOGEN NEG (NEG); ZZUR CULT IF INDIC CLEAN CATCH NO
[2017-07-19 12:46] LABS: MANUAL MICROSCOPIC REQUIRED? NO; REVIEW REQ? NO
== END | disposition home or self-care (01) ==
LOC: C.LABSPEC 10:26
PROVIDERS: ATTEND Physician Assistant
DX: N39.0 Urinary tract infection, site not specified (principal)

== ENCOUNTER → 2017-07-24 | Outpatient (CLI) | payer OTHER ==
--- NOTE | 2017-07-25 07:26 | MAMMOGRAPHY REPORT ---
BILATERAL DIGITAL SCREENING MAMMOGRAM TOMOSYNTHESIS WITH CAD: 07/24/2017 CLINICAL HISTORY: Routine screening. Patient has no complaints. TECHNIQUE: Breast tomosynthesis in addition to standard 2D mammography was performed. Current study was also evaluated with a Computer Aided Detection (CAD) system. COMPARISON: Comparison is made to exams dated: 07/21/2016 mammogram - [facility], 10/14/2013 mammogram, 09/21/2010 mammogram, and 04/27/2009 mammogram - [facility]. BREAST COMPOSITION: The tissue of both breasts is almost entirely fatty. FINDINGS: There are scattered and grouped benign-appearing calcifications in both breasts. No suspi cious mass, architectural distortion or cluster of new, suspicious microcalcifications is seen. IMPRESSION: ACR BI-RADS CATEGORY 2: BENIGN There is no mammographic evidence of malignancy. A 1 year screening mammogram is recommended. The pa tient will receive written notification of the results. Approximately 10% of breast cancers are not detected with mammography. A negative mammographic report should not delay biopsy if a clinically suggestive mass is present. Zayda Garcia M.D. ay/:07/24/2017 17:01:35 Test Kitchen Home Economist: Brenda JASSO)(Rickey), [facility] letter sent: Normal 1/2 BI-RADS Code: ACR BI-RADS Category 2: Benign
== END | disposition home or self-care (01) ==
LOC: C.MAMM 07:55
PROVIDERS: ATTEND Family Medicine
DX: Z12.31 Encounter for screening mammogram for malignant neoplasm of breast (principal)

== ENCOUNTER 2017-09-03 22:24 | Emergency (ER) | payer OTHER ==
[~2017-09-03] VITALS: Ht 157.5 cm; Wt 94.3 kg
[2017-09-03 22:36] VITALS: TEMP 36.5; Ht 157.5 cm; Wt 94.3 kg
[2017-09-03] MEDS ORDERED: CLINDAMYCIN 150MG HOME PACK PO ONE (22:45)
[2017-09-03] MEDS ORDERED: OXYCODONE IR HOME PACK PO ONE (22:45)
[2017-09-03] MEDS ORDERED: CLIN150C PO (22:51)
[2017-09-03] MEDS ORDERED: OXYC1TAB3 PO (22:51)
[2017-09-03] MEDS ORDERED: ACET-1256 PO (22:54)
[2017-09-03] MEDS ORDERED: OFLO0.3S OP (22:54)
[2017-09-03] MEDS ORDERED: NAPR-1169 PO (22:54)
[2017-09-03 23:04] VITALS: BP 189/84; PULSE 62; O2SAT 96
--- NOTE | 2017-09-03 23:23 | EMERGENCY ROOM VISIT NOTE ---
History First contact with patient: 22:43 Chief Complaint: DENTAL PAIN Stated Complaint: TOOTHACHE Nursing Triage Summary: Patient ambulatory to triage with the use of a cane. Patient states "I have a tooth ache on my right lower jaw. I have a broken tooth. It's been broken for a while but the pain has been going on only a few days." History of Present Illness The patient is a 57 year old female who presents to the Emergency Room with complaints of right lower dental pain for the past few days who states is broken. Pain currently 7 out of 10. Nothing makes it better or worse. It does not radiate. Patient tried naproxen, Advil and Tylenol without relief. Patient denies fevers, facial swelling, drainage, cold symptoms, sore throat, dysphagia, neck pain, chest pain, dyspnea or any other medical complaints. Review of Systems See HPI for pertinent positives & negatives. A total of 10 systems reviewed and were otherwise negative. Past Medical/Surgical History Medical Problems: (1) Backache Nos (2) Diabetes (3) Heart disease (4) History of cardiomyopathy (5) Hyperlipidemia (6) Hypertension (7) Idiopathic Scoliosis Family History Cancer Diabetes mellitus Heart disease Hypertension Lung disease Social History Smoking Status: Never Smoker Smokeless Tobacco Use: No Alcohol Use: heavy Drug Use: none Marital Status: Housing Status: lives with family Occupation Status: employed Current/Historical Medications Scheduled Aspirin (Aspirin Ec), 81 MG PO QAM Atorvastatin (Atorvastatin Calcium), 40 MG PO HS Calcium Carbonate-Vitamin D W/ (Calcium 1200), 1 TAB PO DAILY Clindamycin Hcl (Cleocin), 150 MG PO QID Cranberry (Vaccinium Macrocarp (Cranberry Highly Concentr), 450 MG PO DAILY Diphenhydramine Hcl (Allergy Relief), 2 CAP PO DAILY Diphenhydramine Hcl (Benadryl Allergy), 50 MG PO HS Escitalopram (Lexapro), 10 MG PO HS Gabapentin (Neurontin), 600 MG PO TID Insulin Lispro 75/25 (Humalog Mix 75/25), 26 UNITS SQ QAM Insulin Lispro 75/25 (Humalog Mix 75/25), 28 UNITS SQ QPM Lisinopril (Zestril), 5 MG PO DAILY Magnesium (Magnesium), 1 TAB PO DAILY Metformin Hcl (Glucophage), 1,000 MG PO BIDM Metoprolol Succ (Toprol Xl) (Toprol-Xl ), 100 MG PO QPM Multiple Vitamins W/ Minerals (Multi For Her), 1 TAB PO DAILY Ofloxacin (Oph) (Ocuflox Oph Soln), Unknown Dose OP DIRECTED Omeprazole (Prilosec), 20 MG PO BID Scheduled PRN Acetaminophen (Tylenol), 1,000 MG PO DIRECTED PRN for Pain or Fever Ibuprofen (Advil), 400 MG PO Q6 PRN for Pain Naproxen (Naprosyn), 500 MG PO BID PRN for Pain Oxycodone Immediate Rel Tab (Roxicodone Ir), 1-2 TAB PO Q4H PRN for Severe Pain Physical Exam Vital Signs Date Time Temp Pulse Resp B/P (MAP) Pulse Ox O2 Delivery O2 Flow Rate FiO2 09/03/17 23:04 62 18 189/84 96 09/03/17 22:36 36.5 115 20 171/101 93 Room Air Physical Exam VITALS: Vitals are noted on the nurse's note and reviewed by myself. Vital signs hypertensive. GENERAL: Pleasant female anxious-appearing, in no acute distress, nondiaphoretic , well-developed well-nourished. SKIN: The skin was without rashes, erythema, edema, or bruising. There is no tenting of the skin. Capillary reflex less than 2 seconds. HEAD: Normocephalic atraumatic. EARS: External auditory canals clear, tympanic membranes pearly walton without erythema or effusion bilaterally. EYES: Pupils equal round and reactive to light and accommodation. Conjunctivae without injection, sclerae without icterus. Extraocular movements intact. NOSE: Patent, turbinates without inflammation or discharge. No sinus tenderness. MOUTH: Mucous membranes moist. No Sania's angina Pharynx without erythema or exudate. Uvula midline. Airway patent. Tongue does not deviate. Dental exam: Multiple missing teeth with right lower incisor with extensive dental decay with gum that is slightly erythematous without palpable abscess. NECK: Supple without nuchal rigidity. No lymphadenopathy. No thyromegaly. Cervical spine is nontender. No JVD. HEART: Regular rate and rhythm LUNGS: Clear to auscultation bilaterally without wheezes, rales or rhonchi. No dullness to percussion. No retractions or accessory muscle use. MUSCULOSKELETAL: No muscle atrophy, erythema, or edema noted. NEURO: Patient was alert and oriented to person place and time. Normal sensation to light and sharp touch. No focal neurological deficits. Medical Decision & Procedures Medications Administered Medications (Trade) Dose Ordered Sig/Breann Route Start Time Stop Time Status Last Admin Dose Admin Clindamycin HCl (Cleocin 150MG Home Pack) 1 homepack UD ONCE PO 09/03/17 22:45 09/03/17 22:46 DC 09/03/17 22:48 1 HOMEPACK Oxycodone HCl (Roxicodone Immediate Rel 5MG Home Pack) 1 homepack UD ONCE PO 09/03/17 22:45 09/03/17 22:46 DC 09/03/17 22:48 1 HOMEPACK ED Course Prior records reviewed and summarized as above. Triage Nursing notes reviewed. Additional history obtained from family. The patient's history was concerning for dental pain. Differential diagnosis: Etiologies such as cellulitis, abscess, gingivitis, dental Diane, Sania angina, as well as others were entertained.. Physical examination: The physical examination was consistent with dental Diane caries with dental pain ER treatment provided: Cleocin On reassessment the patient felt better. Diagnostics interpreted by me: Deferred This appears to be dental pain from dental caries. Patient had no abscess. no sania's angina. She is informed to monitor her blood sugars and to see her family care drMarcial for elevated blood pressure. she is advised follow-up dentistry for definitive care for her ongoing dental issues or here in the er sooner for fevers, facial swelling, difficulty swallowing, worsening signs or symptoms or as needed. By the evaluation outlined above emergent etiologies such as abscess, Sania angina, as well as others were deemed relatively unlikely. The pt informed about the findings as listed above. All questions were answered and pleased with the treatment. Return instructions were outlined and the patient was discharged in stable condition. Outpatient prescription management: cleocin Referral: The patient was referred back to dentist and primary care physician for follow- up in 2 to 3 days for a recheck of the current condition. Medical Decision As above [place] Drug Monitoring Program Search Results: patient reviewed within database, no issues identified Medication Reconcilliation Current Medication List: was personally reviewed by me Blood Pressure Screening Patient's blood pressure: Elevated blood pressure Blood pressure disposition: Referred to PCP Impression Primary Impression: Tooth pain with chewing Additional Impression: Dental caries Departure Information Dispostion Home / Self-Care Condition GOOD Prescriptions Oxycodone Immediate Rel Tab (ROXICODONE IR) 5 Mg Tab 1-2 TAB PO Q4H Y for Severe Pain, #10 TAB initial course Prov: Lucina Dwyer .BARBARA 09/03/17 Clindamycin Hcl (CLEOCIN) 150 Mg Cap 150 MG PO QID for 9 Days, #36 CAP Prov: Lucina Dwyer .BARBARA 09/03/17 Referrals No Doctor, Assigned Forms HOME CARE DOCUMENTATION FORM, IMPORTANT VISIT INFORMATION Patient Instructions My [facility], ED [facility] Additional Instructions Monitor your blood sugar and blood pressure. Clindamycin 150mg: Take one pill 4 times daily for 10 days for your infection. Take with food, but avoid dairy. Avoid prolonged sun exposure since this medication makes you temporarily more susceptible to sunburns. All antibiotics can cause diarrhea. If this occurs and you feel worse or it does not resolve in 1-2 days follow up with your doctor or return to the Emergency Department as this could be signs of serious underlying problems. Any medication can cause an allergic reaction, stop the pills immediately and return to the ER for rash, hives, breathing difficulties, or swelling. Oxycodone (OxyIR) 5mg: Take 1-2 pills every four hours for breakthrough pain. Avoid alcohol, operating machinery or dangerous equipment, working on ladders or roofs, DRIVING, or situations where being under the influence may be dangerous. It is recommended to use an glxp-otl-tccmfrl stool softener such as Colace, 100mg twice daily while taking this medication to avoid constipation. Ibuprofen(Motrin, Advil) may be used for fever or pain. Use 600mg every six hours as needed. Take with food. Avoid using more than 2400mg in a 24 hour period. Do not use 2400mg per day for more than three consecutive days without physician direction. Prolonged inappropriate use can lead to stomach upset or ulcers. This medication can be taken if you need to drive, work, or perform activities which may be dangerous when taking narcotic pain medication. (AND/OR) Acetaminophen(Tylenol) may be used for fever or pain. Use 1000mg every six hours as needed. Avoid using more than 3000mg in a 24 hour period. This medication can be taken if you need to drive, work, or perform activities which may be dangerous when taking narcotic pain medication. Oneill teeth twice a day, floss daily and do warm saltwater gargles 3 times a day. See a dentist as soon as possible for definitive care for your dental problem. Return to ER sooner for facial swelling, fever, redness, worsening signs or symptoms or as needed. Problem Qualifiers
== END 2017-09-03 23:07 | disposition home or self-care (01) ==
LOC: C.EDB 22:25
DX: K08.89 Other specified disorders of teeth and supporting structures (principal); K02.9 Dental caries, unspecified; E11.9 Type 2 diabetes mellitus without complications; I10 Essential (primary) hypertension; E78.5 Hyperlipidemia, unspecified; Z83.3 Family history of diabetes mellitus; Z82.49 Family history of ischemic heart disease and other diseases of the circulatory system; Z79.4 Long term (current) use of insulin; Z79.82 Long term (current) use of aspirin; Z79.84 Long term (current) use of oral hypoglycemic drugs; Z79.899 Other long term (current) drug therapy

== ENCOUNTER → 2017-09-21 | Outpatient (CLI) | payer OTHER ==
[~2017-09-21] MED LIST changes: +ACET-1256 PO; -CIPR1TAB10 PO; +NAPR-1169 PO; +OFLO0.3S OP; +OXYC1TAB3 PO
[2017-09-21 17:31] LABS: BASO % 0.5 %; BASO ABS # 0.04 K/uL (0-0.2); COMPLETE YES; EOS % 6.8 %; HEMATOCRIT 37.7 % (37-47); IG% 0.2 %; LYMPH % 29.7 %; MEAN CORPUSCULAR HEMOGLOBIN 29.6 pg (25-34); MEAN CORPUSCULAR HGB CONC 32.9 g/dl (32-36); MEAN PLATELET VOLUME 12.5 fL (7.4-10.4); NEUT % 54.8 %; PLATELET COUNT 285 K/uL (130-400); RED BLOOD COUNT 4.19 M/uL (4.2-5.4); WHITE BLOOD COUNT 8.41 K/uL (4.8-10.8)
[2017-09-21 18:13] LABS: ALT/SGPT 25 U/L (12-78); BLOOD UREA NITROGEN 19 mg/dl (7-18); BUN/CREATININE RATIO 27.9 (10-20); CALCIUM 8.8 mg/dl (8.5-10.1); CARBON DIOXIDE 29 mmol/L (21-32); CHLORIDE 102 mmol/L (98-107); GLUCOSE 171 mg/dl (70-99); POTASSIUM 4.5 mmol/L (3.5-5.1); SODIUM 137 mmol/L (136-145)
[2017-09-21 18:23] LABS: ALB/GLOB RATIO 0.9 (0.9-2); ALKALINE PHOSPHATASE 92 U/L (45-117); AST/SGOT 15 U/L (15-37)
== END | disposition home or self-care (01) ==
LOC: C.LABPBG 14:04
PROVIDERS: ATTEND Family Medicine
DX: R53.83 Other fatigue (principal)

== ENCOUNTER → 2017-10-24 | Outpatient (CLI) | payer OTHER | END | disposition home or self-care (01) | LOC: C.LABSPEC 15:27 | PROVIDERS: ATTEND Family Medicine | DX: R39.9 Unspecified symptoms and signs involving the genitourinary system (principal) ==

== ENCOUNTER 2022-01-06 12:16 | Observation (INO) ==
[2022-01-06 13:24] LABS: Basophils # (auto) 0.02 K/uL (0-0.2); Basophils % (auto) 0.2 %; Eosinophils # (auto) 0.43 K/uL (0-0.5); Eosinophils % (auto) 4.9 %; Hematocrit (blood only) 42.2 % (37-47); Immature Granulocytes # (auto) 0.02 K/uL (0.00-0.02); Immature Granulocytes % (auto) 0.2 %; Lymphocytes # (auto) 1.82 K/uL (1.2-3.4); Lymphocytes % (auto) 20.7 %; Mean Corpuscular Hemoglobin 29.5 pg (25-34); Mean Corpuscular Hgb Conc 33.2 g/dL (32-36); Mean Platelet Volume 12.8 fL (7.4-10.4); Monocytes # (auto) 0.56 K/uL (0.11-0.59); Monocytes % (auto) 6.4 %; Neutrophils # (auto) 5.94 K/uL (1.4-6.5); Neutrophils % (auto) 67.6 %; Platelet Count 227 K/uL (130-400); RDW Coefficient of Variation 13.3 % (11.5-14.5); RDW Standard Deviation 43.7 fL (36.4-46.3); Red Blood Count 4.74 M/uL (4.2-5.4); White Blood Count 8.79 K/uL (4.8-10.8)
--- NOTE | 2022-01-06 13:28 | XRay Report ---
XR chest 2V PA/lateral HISTORY: Dizziness. Atypical Chest Pain COMPARISON: Chest CTA 01/05/2022. FINDINGS: The lungs are hyperexpanded with mild apical predominant emphysematous changes. No pneumoth orax. No pleural effusion is. The heart is normal in size. A few bibasilar linear densities consisten t with subsegmental atelectasis or scarring. This is similar to the prior study. No new focal lung co nsolidations to suggest pneumonia. No evidence for pulmonary edema. IMPRESSION: No significant change compared to the prior study. No acute process. ACT 112: Negative or not required by law. Electronically signed by: Epifanio Demarco M.D. 01/06/2022 1:26 PM
[2022-01-06 13:37] LABS: Partial Thromboplastin Ratio 0.9; Partial Thromboplastin Time 25.9 Seconds (21.0-31.0); Prothrombin Time 10.9 Seconds (9.0-12.0)
[2022-01-06 13:46] LABS: Albumin Globulin Ratio 1.2 (0.9-2); Albumin Level 3.8 gm/dl (3.4-5.0); BUN Creatinine Ratio 29.3 (10-20); Bilirubin,Total 0.6 mg/dl (0.2-1.0); Calcium 9.4 mg/dl (8.5-10.1); Creatinine Clr Calc Pharmacy 76.9 ml/min; Est GFR (African American) 88.3 ml/min; Est GFR (Non-African American) 76.2 ml/min; Globulin 3.2 gm/dl (2.5-4.0)
--- NOTE | 2022-01-06 15:04 | History & Physical Report ---
Date of Service January 06, 2022 Assessment & Plan (1) Shortness of breath: Plan: Chest pressure Troponin negative on admission and no acute worsening in last 24 hours therefore no need to trend troponins Dobutamine stress echo tomorrow CXR and CT for PE (day prior to admission) negative for acute pathology (2) Fatigue: Plan: 1 week of symptoms. Evaluate for cardiac cause as above. No infective etiology found on UA or CXR and no acute focal symptoms for further evaluation ?related to Trulicity as her only recent change in medication ?related to hyperglycemia High dose of gabapentin but given no recent change doubtful contributing. (3) Abdominal pain: Plan: Only on palpation Will monitor with serial exams (4) Acute hyperglycemia: Plan: to bring in home insulin to check her sugar can be controlled while in the hospital No recent change in diet per patient Consult prosthodontist/educator (5) Poorly controlled type 2 diabetes mellitus: Plan: HbA1C 7.6 in August, will repeat with AM labs Hold metformin in case of need for cardiac cath Lantus 12 units SQ BID Novolog: Goal BSG Range: Low 110 mg/dL, High 140 mg/dL Correction Factor: 35 mg/dL/unit Carbohydrate ratio = 12 g/unit BSGs ACHS if eating, q6h if npo Switch back to her usual insulin once brings it in Plan: VTE Prophylaxis - low risk Diet - T2DM, heart healthy Disposition - observation status to med/tele Admission and Anticipated Discharge Date Admission Date: January 06, 2022 History of Present Illness Chief Complaint: Shortness of breath and fatigue Primary Care Provider: DO Billy Sheffield Virginie is a 61 year old female who presents to the ER on the advice of her PCP due to shortness of breath and fatigue. The patient was here yesterday with a negative workup including CT angiogram negative for pulmonary embolism. Reportedly Dr Mendoza recommended admission for further cardiac ischemic workup at that time however the patient felt she misunderstood and felt her symptoms were due to her high glucose levels therefore declined. She finds it very difficult to explain her symptoms but generally over the last week she feels there has been an acute change in her fatigue and shortness of breath but not necessarily getting worse over the last week. I am less clear regarding her chest pain. She reports not being able to lie flat due to reflux but feels a pressure on her chest for the last few days that is different from this. Unknown if it is exertional, nothing makes it worse or better, unclear if there is a change in this pressure with eating. She notes chest pain on palpation but this is different from the feeling she is having. She does note slight indigestion but cannot explain to me how this is different to her chest pressure. She does report when she is up and about she feels like she is going to pass out. In the ER she is currently feeling a fluttery feeling in her chest (of note patient is currently in NSR on telemetry with HR 80 bpm). She feels her symptoms are due to her high glucose values although also notes her glucose values have been high since the start of the year when her insurance switched her insulin and she has been unable to control her glucose values since. More recent to this however she was started on Trulicity 5 weeks ago. She denies any diarrhea or abdominal pain (except on palpation). She reports no change to her diet: Breakfast - Atkins drink, banana, Lunch - meals on wheels, Supper - noodles, burger, mashed potatoes. Glucose routinely > 400+ on Dexacom. Her customer support associate recently advised increasing her dose and she took 55 units this morning since BSG > 250. Other than her insulin she did not take any of her other medications this morning. She is also complaining of a headache but reports she has these all the time and this is not a new symptoms. Occur all over her head. No one sided weakness, change in speech, hearing or vision (patient is legally blind). In the ER, EKG is unchanged, high sensitivity troponin negative. UA from yesterday and CXR today unremarkable for infective etiology. She was referred to medicine for admission and ongoing management of chest pain. Allergies Allergy/AdvReac Type Severity Reaction Status Date / Time No Known Drug Allergies Allergy Unknown Verified 01/06/22 15:41 Home Medications Medication Instructions Recorded Confirmed Type multivitamin 1 tab PO QPM 08/01/18 01/06/22 History aspirin 81 mg tablet,delayed 81 mg PO QAM 08/07/19 01/06/22 History release (Aspirin Low Dose) melatonin 3 mg tablet (Melatin) 3 mg PO HS PRN 08/07/19 01/06/22 History nystatin 100,000 unit/gram topical 1 applic TOP BID PRN gm 10/15/20 01/06/22 History cream sertraline 50 mg tablet 50 mg PO HS #30 tab 10/04/21 01/06/22 Rx atorvastatin 40 mg tablet 40 mg PO HS #30 tab 10/28/21 01/06/22 Rx levocetirizine 5 mg tablet (Xyzal) 5 mg PO HS #30 tab 10/28/21 01/06/22 Rx metoprolol succinate 100 mg 50 mg PO HS #90 tab 10/28/21 01/06/22 Rx tablet,extended release 24 hr omeprazole 20 mg capsule,delayed 20 mg PO BID #180 cap 11/09/21 01/06/22 Rx release insulin aspar prot-insulin aspart 32 unit SUBCUT BID ml 11/11/21 01/06/22 His tory 100 unit/mL (70-30) subcutaneous pen (Novolog Mix 70-30FlexPen U-100) lisinopril 5 mg tablet 5 mg PO QAM #90 tab 11/15/21 01/06/22 Rx metformin 500 mg tablet 500 mg PO BID #60 tab 11/18/21 01/06/22 Rx dulaglutide 0.75 mg/0.5 mL 0.75 mg SUBCUT .q week #2 ml 11/30/21 01/06/22 Rx subcutaneous pen injector (Trulicity) gabapentin 100 mg capsule 100 mg PO TID #90 cap 12/08/21 01/06/22 Rx gabapentin 300 mg capsule 600 mg PO TID #180 cap 12/08/21 01/06/22 Rx meclizine 25 mg tablet 25 mg PO QID PRN #90 tab 12/08/21 01/06/22 Rx vit C-vit B-mbocpk-acbe ox-lutein 1 cap PO HS 12/08/21 01/06/22 History 226 mg-200 unit-5 mg-0.8 mg capsule (PreserVision Lutein) trazodone 50 mg tablet 50 mg PO HS #30 tab 12/15/21 01/06/22 Rx dorzolamide 22.3 mg-timolol 6.8 1 drp OPHTHALMIC (EYE) UD 01/06/22 01/06/22 History mg/mL eye drops Past Med/Surg History Medical History Acid reflux Anxiety Arteriosclerosis of coronary artery Arthritis, lumbar spine Chronic back pain Depression with anxiety Diabetes mellitus, type 2 IDDM DM (diabetes mellitus), type 2, uncontrolled w/ophthalmic complication History of cardiomyopathy Hx of vertigo Hyperlipidemia Hypertension Legally blind 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 ear Nocturnal hypoxia states sleep study was negative Osteoarthritis Peripheral neuropathy Proliferative diabetic retinopathy with macular edema Restless legs syndrome 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) SNHL (sensorineural hearing loss) Stable angina denies CP with exertion Surgical History H/O elbow surgery left, d/t fracture H/O tooth extraction History of cardiac cath over 15 years ago at [facility], denies intervention History of colonoscopy History of esophagogastroduodenoscopy (EGD) History of uvulopalatopharyngoplasty pt denies S/P adenoidectomy S/p bilateral myringotomy with tube placement S/P cataract surgery bilateral S/P ear surgery reconstructive Right ear with Dr Donohue in the S/P nasal septoplasty (09/09/21) S/P tonsillectomy S/P total hysterectomy and bilateral salpingo-oophorectomy Family History Mother Hypertension Diabetes Congestive heart failure Stroke Sister Lymphoma Father Diabetes Brother Hypertension Denies family history of Ovarian cancer Prostate cancer Myocardial infarction Breast cancer Colorectal cancer Social History Smoking Status: Never smoker Second Hand Exposure: Yes; Do You Dip or Chew Tobacco: No; Tobacco Cessation Education Requested by Patient: No Hx Alcohol Use: Yes Alcohol type: wine Hx Substance Use: No Preferred Language: Hungarian Communication Ability: Effective Visual Impairment: Diminished Hearing Ability: Normal Stores Naval Required: No Beliefs That Will Affect Care: None marital status: Current Living Situation: Spouse current occupational status: disabled current occupation: [employer] homem[employer] How many Children do You have: 0 How many Children do You have Comment: has 4 children Other Information That Helps Us Care for You: No Feels Safe at Home: Yes Safety Concerns: Feels Safe At This Time Childhood Exposure to Second-Hand Smoke: Yes caffeine: Yes (diet mt dew) during the past year weight has: remained stable Dental Care, Regularly: Yes Physical Activity Frequency: Daily Physical Activity Frequency Comment: pt walks laps around her house Seatbelt Use: always Sunscreen Use: Yes Assistive Devices: Glasses Review of Systems Review of Systems: All systems reviewed & are unremarkable except as noted in HPI & below Physical Exam Constitutional: WD/WN, vitals as above no acute distress Eyes: PERRL, conjunctivae normal, anicteric sclerae ENMT: external ear and nose normal, oropharynx normal Neck: trachea midline, no thyromegaly Respiratory: normal respiratory effort, lungs clear to auscultation Cardiovascular: RRR, no murmur, no edema Gastrointestinal (Abdomen): normal bowel sounds, soft, nontender, no hepatosplenomegaly Musculoskeletal: no cyanosis or clubbing, extremities motor strength 5/5 Skin: no rashes, warm and dry Neurologic: moves all extremities and awake; no focal motor deficits and not confused Psychiatric: A+Ox3, euthymic affect Genitourinary: no CVA tenderness Results & Data Results & Data ([facility]) Vital Signs (Past 12 Hours) Vital Signs Temp Pulse Resp BP Pulse Ox 01/06/22 12:21 36.5 C 84 18 135/70 94 Diagnostic Findings XR chest 2V PA/lateral HISTORY: Dizziness. Atypical Chest Pain COMPARISON: Chest CTA 01/05/2022. FINDINGS: The lungs are hyperexpanded with mild apical predominant emphysematous changes. No pneumothorax. No pleural effusion is. The heart is normal in size. A few bibasilar linear densities consistent with subsegmental atelectasis or scarring. This is similar to the prior study. No new focal lung consolidations to suggest pneumonia. No evidence for pulmonary edema. IMPRESSION: No significant change compared to the prior study. No acute process. Medications Administered ER Medications Given: None ECG Indication: SOB/dyspnea Rate (beats per minute): 86 Rhythm: normal sinus Findings: no acute ischemic change Comparison ECG Date: from (January 06, 2022) Change: no significant change Code Status & VTE Plan Code Status Full VTE Prophylaxis Plan VTE Prophylaxis will be ordered: No Reason for no VTE drug order: Treatment not indicated Reason for no VTE mechanical prophylaxis: Treatment not indicated PG Care Time/CCT Total # of Minutes Spent Total Time Spent with Patient: Total time spent is greater than 50% in coordination of care (as documented) at patient's floor/unit and/or counseling patient: Coding Level of Care Code INT OBSERVATION CARE 70M LVL 3 Diagnoses Shortness of breath R06.02 Abdominal pain R10.9 Abdominal location: unspecified location Acute hyperglycemia R73.9 Poorly controlled type 2 diabetes mellitus E11.65 Fatigue R53.83 (1) Abdominal pain Abdominal location: unspecified location Qualified Code(s): R10.9 - Unspecified abdominal pain
[2022-01-06] MEDS ORDERED: NovoLIN-R INSULIN PER UNIT CHARGE IV STA (15:26)
[2022-01-06] MEDS ORDERED: GLUCOSE 40% GEL 15 GM TUBE PO PRN (17:11)
[2022-01-06] MEDS ORDERED: DEXTROSE 50% 50 ML SYRINGE IV PRN (17:11)
[2022-01-06] MEDS ORDERED: GLUCOSE 10 TABS/TUBE PO PRN (17:11)
[2022-01-06] MEDS ORDERED: GLUCAGON FOR INJ 1 MG VIAL SQ PRN (17:11)
[2022-01-06] MEDS ORDERED: CARBOHYDRATES FOR HYPOGLYCEMIA PO PRN (17:11)
[2022-01-06] MEDS: INSULIN ASPART PER UNIT SC SCH ×2 (17:52→20:39)
[2022-01-06 20:25] LABS: Appearance Urine Clear (Clear); Bilirubin Urine Negative (Negative); Blood Urine Negative (Negative); Color Urine Yellow; Glucose Urine UA 3+ (Negative); Ketones Urine Negative (Negative); Leukocyte Esterase Urine Negative (Negative); Nitrite Urine Negative (Negative); Protein Urine Negative (Negative); Specific Gravity Urine 1.006 (1.000-1.030); Urobilinogen Urine Negative (Negative); pH Urine 6.5 (4.5-7.5)
[2022-01-06] MEDS: GABAPENTIN 100 MG CAP PO SCH (20:25)
[2022-01-06] MEDS: GABAPENTIN 300 MG CAP PO SCH (20:25)
[2022-01-06] MEDS: PANTOprazole 40 MG TAB PO SCH (20:27)
[2022-01-06] MEDS: ACETAMINOPHEN 325 MG TAB PO PRN (20:29)
[2022-01-06] MEDS: DORZOLAMIDE/TIMOLOL 22.3/6.8MG/ML 10 ML BTL OP SCH (20:33)
[2022-01-06] MEDS: INSULIN GLARGINE SOLOSTAR 100 UNITS/ML 3 ML PEN SC SCH (20:39)
[2022-01-06] MEDS: MAGNESIUM SULFATE / D5W 1 GM/100 ML BAG IV SCH ×2 (20:43→22:41)
[2022-01-06] MEDS ORDERED: ATORVASTATIN 40 MG TAB PO SCH (21:00)
[2022-01-06] MEDS ORDERED: SERTRALINE HCL 50 MG TABLET PO SCH (21:00)
[2022-01-06] MEDS ORDERED: MULTIVITAMIN TAB PO SCH (21:00)
[2022-01-06] MEDS ORDERED: traZODone HCL 50 MG TAB PO SCH (21:00)
[2022-01-06] MEDS ORDERED: METOPROLOL SUCC 50MG EXT REL TAB PO SCH (21:00)
[2022-01-06] MEDS ORDERED: CETIRIZINE HCL 10 MG TABLET PO SCH (21:00)
[2022-01-06] MEDS ORDERED: CEROVITE ADV FORMULA TAB PO SCH (21:00)
--- NOTE | 2022-01-06 22:31 | Emergency Department Note ---
History of Present Illness General Chief complaint: Cardiac Assessment Stated complaint: DR SENT FOR TESTING, ANGINA, Time Seen by Provider: 01/06/22 14:00 History of Present Illness Provider complaint: Chest pain fatigue shortness breath hyperglycemia Onset (ago): day(s) 5 Maximum Pain Intensity: 3 Associated symptoms: + headaches, + malaise, + shortness of breath and + weakness; no chest pain, no cough, no fever/chills, no nausea/vomiting or no syncope 61-year-old female presents emergency department for chest pain, fatigue, shortness of breath, and hyperglycemia. Patient states she was in the emergency department yesterday and left AGAINST MEDICAL ADVICE. She states she called her primary care doctor Dr. Kline who told her to come back to the emergency department to be admitted. Home Medications Medication Instructions Recorded Confirmed Type multivitamin 1 tab PO QPM 08/01/18 01/06/22 History aspirin 81 mg tablet,delayed 81 mg PO QAM 08/07/19 01/06/22 History release (Aspirin Low Dose) melatonin 3 mg tablet (Melatin) 3 mg PO HS PRN 08/07/19 01/06/22 History nystatin 100,000 unit/gram topical 1 applic TOP BID PRN gm 10/15/20 01/06/22 History cream sertraline 50 mg tablet 50 mg PO HS #30 tab 10/04/21 01/06/22 Rx atorvastatin 40 mg tablet 40 mg PO HS #30 tab 10/28/21 01/06/22 Rx levocetirizine 5 mg tablet (Xyzal) 5 mg PO HS #30 tab 10/28/21 01/06/22 Rx metoprolol succinate 100 mg 50 mg PO HS #90 tab 10/28/21 01/06/22 Rx tablet,extended release 24 hr omeprazole 20 mg capsule,delayed 20 mg PO BID #180 cap 11/09/21 01/06/22 Rx release insulin aspar prot-insulin aspart 32 unit SUBCUT BID ml 11/11/21 01/06/22 History 100 unit/mL (70-30) subcutaneous pen (Novolog Mix 70-30FlexPen U-100) lisinopril 5 mg tablet 5 mg PO QAM #90 tab 11/15/21 01/06/22 Rx metformin 500 mg tablet 500 mg PO BID #60 tab 11/18/21 01/06/22 Rx dulaglutide 0.75 mg/0.5 mL 0.75 mg SUBCUT .q week #2 ml 11/30/21 01/06/22 Rx subcutaneous pen injector (Trulicity) gabapentin 100 mg capsule 100 mg PO TID #90 cap 12/08/21 01/06/22 Rx gabapentin 300 mg capsule 600 mg PO TID #180 cap 12/08/21 01/06/22 Rx meclizine 25 mg tablet 25 mg PO QID PRN #90 tab 12/08/21 01/06/22 Rx vit C-vit H-aedxgh-yczo ox-lutein 1 cap PO HS 12/08/21 01/06/22 History 226 mg-200 unit-5 mg-0.8 mg capsule (PreserVision Lutein) trazodone 50 mg tablet 50 mg PO HS #30 tab 12/15/21 01/06/22 Rx dorzolamide 22.3 mg-timolol 6.8 1 drp OPHTHALMIC (EYE) UD 01/06/22 01/06/22 History mg/mL eye drops Allergies Allergy/AdvReac Type Severity Reaction Status Date / Time No Known Drug Allergies Allergy Unknown Verified 01/06/22 15:41 Past Med/Surg History Medical History Acid reflux Anxiety Arteriosclerosis of coronary artery Arthritis, lumbar spine Chronic back pain Depression with anxiety Diabetes mellitus, type 2 IDDM DM (diabetes mellitus), type 2, uncontrolled w/ophthalmic complication History of cardiomyopathy Hx of vertigo Hyperlipidemia Hypertension Legally blind 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 ear Nocturnal hypoxia states sleep study was negative Osteoarthritis Peripheral neuropathy Proliferative diabetic retinopathy with macular edema Restless legs syndrome 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) SNHL (sensorineural hearing loss) Stable angina denies CP with exertion Surgical History H/O elbow surgery left, d/t fracture H/O tooth extraction History of cardiac cath over 15 years ago at [facility], denies intervention History of colonoscopy History of esophagogastroduodenoscopy (EGD) History of uvulopalatopharyngoplasty pt denies S/P adenoidectomy S/p bilateral myringotomy with tube placement S/P cataract surgery bilateral S/P ear surgery reconstructive Right ear with Dr Donohue in the S/P nasal septoplasty (09/09/21) S/P tonsillectomy S/P total hysterectomy and bilateral salpingo-oophorectomy Family History Mother Hypertension Diabetes Congestive heart failure Stroke Sister Lymphoma Father Diabetes Brother Hypertension Denies family history of Ovarian cancer Prostate cancer Myocardial infarction Breast cancer Colorectal cancer Social History Smoking Status: Never smoker Second Hand Exposure: Yes; Do You Dip or Chew Tobacco: No; Tobacco Cessation Education Requested by Patient: No Hx Alcohol Use: Yes Alcohol type: wine Hx Substance Use: No Preferred Language: Citizen Of [place] Communication Ability: Effective Visual Impairment: Diminished Hearing Ability: Normal Intelligent Systems Engineer Required: No Beliefs That Will Affect Care: None marital status: Current Living Situation: Spouse current occupational status: disabled current occupation: [employer] How many Children do You have: 0 How many Children do You have Comment: has 4 children Other Information That Helps Us Care for You: No Feels Safe at Home: Yes Safety Concerns: Feels Safe At This Time Childhood Exposure to Second-Hand Smoke: Yes caffeine: Yes (diet mt dew) during the past year weight has: remained stable Dental Care, Regularly: Yes Physical Activity Frequency: Daily Physical Activity Frequency Comment: pt walks laps around her house Seatbelt Use: always Sunscreen Use: Yes Assistive Devices: Glasses Review of Systems A total of 10 systems reviewed and were otherwise negative Physical Exam Vital Signs Vital Signs - 24 hr 01/06/22 12:21 01/06/22 14:14 01/06/22 14:30 Temperature 36.5 C Temperature Source Oral Pulse Rate 84 74 74 Pulse Rate from SpO2 Sensor 73 74 Respiratory Rate 18 17 21 Blood Pressure 135/70 Blood Pressure Mean 91 Pulse Oximetry 94 94 91 Oxygen Delivery Method Room Air Sepsis Recent Fever Within 48 Hours No Sepsis New/Unexplained Change in Mental Status No Sepsis Action Taken by Nursing No Action Required 01/06/22 15:00 Temperature Temperature Source Pulse Rate 75 Pulse Rate from SpO2 Sensor 75 Respiratory Rate 13 Blood Pressure Blood Pressure Mean Pulse Oximetry 94 Oxygen Delivery Method Sepsis Recent Fever Within 48 Hours Sepsis New/Unexplained Change in Mental Status Sepsis Action Taken by Nursing Physical Exam GENERAL: She is oriented to person, place, and time. She appears well-developed and well-nourished. She does not appear distressed. HENT: Exam performed. -Head: Normocephalic and atraumatic. -Right Ear: External ear normal. No mastoid tenderness. -Left Ear: External ear normal. No mastoid tenderness. -Mouth/Throat: The oropharynx is clear and moist. No trismus in the jaw. No dental abscesses or uvula swelling. No oropharyngeal exudate or tonsillar ab scesses. EYES: Conjunctivae and EOM are normal. Pupils are equal, round, and reactive to light. Right eye exhibits no discharge. Left eye exhibits no discharge. No scleral icterus. NECK: Normal range of motion. Neck supple. No JVD present. No spinous process tenderness present. No carotid bruit present. No rigidity. No tracheal deviation and normal range of motion present. No Brudzinski's sign and no Kernig's sign noted. CV: Normal rate, regular rhythm, normal heart sounds and intact distal pulses. There is no peripheral edema. Palpable radial pulses bue. PULM/CHEST: Effort normal and breath sounds normal. No respiratory distress. No stridor. She has no wheezes. She has no rales. -Chest Wall: She exhibits no tenderness. ABD: The abdomen is soft and obese. Bowel sounds are normal. She has no distension. No mass is present. There is no tenderness. There is no rebound, no guarding, no Munoz's sign and no tenderness at McBurney's point. Rovsig negative MUSC/SKEL: Normal range of motion. There is no peripheral edema, tenderness or deformity. LYMPH: No cervical adenopathy. NEURO: She is alert and oriented to person, place, and time. She has normal strength. No cranial nerve deficit or sensory deficit. Coordination and gait normal. GCS eye subscore is 4. GCS verbal subscore is 5. GCS motor subscore is 6. Cerebellar tests wnl. SKIN: Skin is warm and dry. She is not diaphoretic. PSYCH: She has a normal mood and affect. Behavior is normal. Judgment and thought content normal. Course Course 1400: The patient was evaluated in room C10. A complete history and physical exam was performed Cardiac monitoring: An order was placed for continuous cardiac monitoring. The monitor shows a rate of 80 with sinus rhythm Patient was seen during a time of extreme volume and extreme acuity during the COVID-19 pandemic. Nursing triage protocols were initiated and labs were drawn by protocol in the triage area. Administered Medications Acetaminophen (Acetaminophen 325 Mg Tab) 650 mg PO Q4H PRN PRN Reason: Pain or Fever Stop: 02/05/22 17:10 Last Admin: 01/06/22 20:29 Dose: 650 mg Documented by: [id number] Atorvastatin Calcium (Atorvastatin 40 Mg Tab) 40 mg PO HS ASHWINI Stop: 02/05/22 20:59 Last Admin: 01/06/22 20:30 Dose: 40 mg Documented by: [id number] Cetirizine HCl (Cetirizine Hcl 10 Mg Tablet) 5 mg PO HS ASHWINI; Protocol Stop: 02/05/22 20:59 Last Admin: 01/06/22 20:24 Dose: 5 mg Documented by: [id number] Dorzolamide/Timolol (Dorzolamide/Timolol 22.3/6.8mg/Ml 10 Ml Btl) 1 drops OP BID ASHWINI Stop: 02/05/22 20:59 Last Admin: 01/06/22 20:33 Dose: 1 drops Documented by: [id number] Gabapentin (Gabapentin 300 Mg Cap) 600 mg PO TID ASHWINI Stop: 02/05/22 20:59 Last Admin: 01/06/22 20:25 Dose: 600 mg Documented by: [id number] Gabapentin (Gabapentin 100 Mg Cap) 100 mg PO TID ASHWINI Stop: 02/05/22 20:59 Last Admin: 01/06/22 20:25 Dose: 100 mg Documented by: [id number] Magnesium Sulfate/Dextrose (Magnesium Sulfate / D5w) 1 gm in 100 mls @ 50 mls/hr IV Q2H ASHWINI Stop: 01/06/22 23:44 Last Admin: 01/06/22 20:43 Dose: 50 mls/hr Documented by: [id number] Insulin Aspart (Insulin Aspart Per Unit) 0 units SC ACHS ASHWINI Stop: 02/05/22 17:44 Last Admin: 01/06/22 20:39 Dose: 4 units Documented by: [id number] Cosigned by: [id number] Admin: 01/06/22 17:52 Dose: 7 units Documented by: [id number] Cosigned by: [id number] Insulin Glargine (Insulin Glargine Solostar 100 Units/Ml 3 Ml Pen) 12 units SC BID ASHWINI Stop: 02/05/22 20:59 Last Admin: 01/06/22 20:39 Dose: 12 units Documented by: [id number] Cosigned by: [id number] Metoprolol Succinate (Metoprolol Succ 50mg Ext Rel Tab) 50 mg PO HS ASHWINI Stop: 02/05/22 20:59 Last Admin: 01/06/22 20:26 Dose: 50 mg Documented by: [id number] Multivitamins (Multivitamin Tab) 1 tab PO QPM ASHWINI Stop: 02/05/22 20:59 Last Admin: 01/06/22 20:28 Dose: 1 tab Documented by: [id number] Multivitamins/Minerals (Cerovite Adv Formula Tab) 1 tab PO HS [facility] Stop: 02/05/22 20:59 Last Admin: 01/06/22 20:28 Dose: 1 tab Documented by: [id number] Pantoprazole Sodium (Pantoprazole 40 Mg Tab) 40 mg PO BID [facility]; Protocol Stop: 02/05/22 20:59 Last Admin: 01/06/22 20:27 Dose: 40 mg Documented by: [id number] Sertraline HCl (Sertraline Hcl 50 Mg Tablet) 50 mg PO [facility] Stop: 02/05/22 20:59 Last Admin: 01/06/22 20:27 Dose: 50 mg Documented by: [id number] Trazodone HCl (Trazodone Hcl 50 Mg Tab) 50 mg PO HS [facility] Stop: 02/05/22 20:59 Last Admin: 01/06/22 20:24 Dose: 50 mg Documented by: [id number] Discontinued Medications Insulin Human Regular (Novolin-R Insulin Per Unit Charge) 10 units IV NOW STA Stop: 01/06/22 15:27 Last Admin: 01/06/22 15:37 Dose: 10 units Documented by: [id number] Cosigned by: [id number] Medical Decision Making Laboratory Data Result diagrams: 01/06/22 12:55 01/06/22 12:55 Lab Results 01/06/22 01/06/22 01/06/22 Range/Units 12:55 12:55 12:55 WBC 8.79 (4.8-10.8) K/uL RBC 4.74 (4.2-5.4) M/uL Hgb 14.0 (12.0-16.0) g/dL Hct 42.2 (37-47) % MCV 89.0 (80-100) fL MCH 29.5 (25-34) pg MCHC 33.2 (32-36) g/dL RDW Std Deviation 43.7 (36.4-46.3) fL RDW Coeff of Salomon 13.3 (11.5-14.5) % Plt Count 227 (130-400) K/uL MPV 12.8 H (7.4-10.4) fL Immature Gran % (Auto) 0.2 % Neut % (Auto) 67.6 % Lymph % (Auto) 20.7 % [place] % (Auto) 6.4 % Eos % (Auto) 4.9 % Baso % (Auto) 0.2 % Neut # (Auto) 5.94 (1.4-6.5) K/uL Lymph # (Auto) 1.82 (1.2-3.4) K/uL [place] # (Auto) 0.56 (0.11-0.59) K/uL Eos # (Auto) 0.43 (0-0.5) K/uL Baso # (Auto) 0.02 (0-0.2) K/uL Immature Gran # (Auto) 0.02 (0.00-0.02) K/uL PT 10.9 (9.0-12.0) Seconds INR 1.0 (0.9-1.1) APTT 25.9 (21.0-31.0) Seconds PTT Ratio 0.9 Sodium (136-145) mmol/L Potassium (3.5-5.1) mmol/L Chloride (98-107) mmol/L Carbon Dioxide (21-32) mmol/L Anion Gap (3-11) BUN (6-23) mg/dl Creatinine (0.6-1.2) mg/dl Est Cr Clr Drug Dosing ml/min Est GFR ( Amer) ml/min Est GFR (Non-Af Amer) ml/min BUN/Creatinine Ratio (10-20) Glucose (70-99(Fasting)) mg/dl Calcium (8.5-10.1) mg/dl Magnesium (1.7-2.4) mg/dl Total Bilirubin (0.2-1.0) mg/dl AST (13-39) U/L ALT (7-52) U/L Alkaline Phosphatase (34-104) U/L Troponin I High Sens 3.1 (0-14) pg/ml Total Protein (6.0-8.3) gm/dl Albumin (3.4-5.0) gm/dl Globulin (2.5-4.0) gm/dl Albumin/Globulin Ratio (0.9-2) SARS-CoV-2, RNA, NAAT (NEGATIVE) 01/06/22 01/06/22 01/06/22 Range/Units 12:55 12:55 14:09 WBC (4.8-10.8) K/uL RBC (4.2-5.4) M/uL Hgb (12.0-16.0) g/dL Hct (37-47) % MCV (80-100) fL MCH (25-34) pg MCHC (32-36) g/dL RDW Std Deviation (36.4-46.3) fL RDW Coeff of Salomon (11.5-14.5) % Plt Count (130-400) K/uL MPV (7.4-10.4) fL Immature Gran % (Auto) % Neut % (Auto) % Lymph % (Auto) % [place] % (Auto) % Eos % (Auto) % Baso % (Auto) % Neut # (Auto) (1.4-6.5) K/uL Lymph # (Auto) (1.2-3.4) K/uL [place] # (Auto) (0.11-0.59) K/uL Eos # (Auto) (0-0.5) K/uL Baso # (Auto) (0-0.2) K/uL Immature Gran # (Auto) (0.00-0.02) K/uL PT (9.0-12.0) Seconds INR (0.9-1.1) APTT (21.0-31.0) Seconds PTT Ratio Sodium 132 L (136-145) mmol/L Potassium 5.0 (3.5-5.1) mmol/L Chloride 98 (98-107) mmol/L Carbon Dioxide 28 (21-32) mmol/L Anion Gap 6 (3-11) BUN 24 H (6-23) mg/dl Creatinine 0.82 (0.6-1.2) mg/dl Est Cr Clr Drug Dosing 76.9 ml/min Est GFR ( Amer) 88.3 ml/min Est GFR (Non-Af Amer) 76.2 ml/min BUN/Creatinine Ratio 29.3 H (10-20) Glucose 484 H* (70-99(Fasting)) mg/dl Calcium 9.4 (8.5-10.1) mg/dl Magnesium 1.4 L (1.7-2.4) mg/dl Total Bilirubin 0.6 (0.2-1.0) mg/dl AST 16 (13-39) U/L ALT 17 (7-52) U/L Alkaline Phosphatase 129 H (34-104) U/L Troponin I High Sens (0-14) pg/ml Total Protein 7.0 (6.0-8.3) gm/dl Albumin 3.8 (3.4-5.0) gm/dl Globulin 3.2 (2.5-4.0) gm/dl Albumin/Globulin Ratio 1.2 (0.9-2) SARS-CoV-2, RNA, NAAT NEGATIVE (NEGATIVE) Imaging Data Radiologist's Impression: Chest X-Ray 01/06/22 12:24 XR chest 2V PA/lateral HISTORY: Dizziness. Atypical Chest Pain COMPARISON: Chest CTA 01/05/2022. FINDINGS: The lungs are hyperexpanded with mild apical predominant emphysematous changes. No pneumothorax. No pleural effusion is. The heart is normal in size. A few bibasilar linear densities consistent with subsegmental atelectasis or scarring. This is similar to the prior study. No new focal lung consolidations to suggest pneumonia. No evidence for pulmonary edema. IMPRESSION: No significant change compared to the prior study. No acute process. ACT 112: Negative or not required by law. Electronically signed by: Epifanio Demarco M.D. 01/06/2022 1:26 PM ECG Data Indication: + chest pain Rate (beats per minute): 86 Rhythm: + normal sinus ECG Intervals/blocks: + Normal MT and + Normal QT-c ECG ST segments: + Normal ST segments Additional Comments: QRS 76 MDM Narrative Labs within normal limits with exception of glucose of 484. EMR reviewed. Patient was seen in the emergency department yesterday and had blood work done which showed hyperglycemia without DKA. She had negative CTA of the chest and negative CTA of the abdomen. According to the ER note from yesterday she was recommended to stay in the hospital but she declined. We will proceed with the patient[facility] Andrade [facility]. Impression & Plan Acute hyperglycemia, Shortness of breath, Chest pain Discharge Plan Visit Data Chief Complaint: Cardiac Assessment Stated Complaint: DR SENT FOR TESTING, ANGINA, Discharge Problem: Acute hyperglycemia, Shortness of breath, Chest pain Patient Disposition: Admitted As Inpatient Discharge Instructions Interventions: ED Discharge Assessment Last Done: 01/06/22 16:22
[2022-01-07 07:47] LABS: Basophils # (auto) 0.03 K/uL (0-0.2); Basophils % (auto) 0.3 %; Eosinophils % (auto) 5.5 %; Hematocrit (blood only) 41.7 % (37-47); Hemoglobin 13.9 g/dL (12.0-16.0); Immature Granulocytes # (auto) 0.02 K/uL (0.00-0.02); Immature Granulocytes % (auto) 0.2 %; Lymphocytes # (auto) 2.79 K/uL (1.2-3.4); Lymphocytes % (auto) 30.6 %; Mean Corpuscular Hemoglobin 29.3 pg (25-34); Mean Corpuscular Hgb Conc 33.3 g/dL (32-36); Mean Platelet Volume 12.7 fL (7.4-10.4); Monocytes # (auto) 0.74 K/uL (0.11-0.59); Monocytes % (auto) 8.1 %; Neutrophils # (auto) 5.04 K/uL (1.4-6.5); Neutrophils % (auto) 55.3 %; Platelet Count 246 K/uL (130-400); RDW Coefficient of Variation 13.3 % (11.5-14.5); RDW Standard Deviation 42.9 fL (36.4-46.3); Red Blood Count 4.74 M/uL (4.2-5.4); White Blood Count 9.12 K/uL (4.8-10.8)
[2022-01-07 08:03] LABS: Calcium 9.4 mg/dl (8.5-10.1); Creatinine Clr Calc Pharmacy 86.6 ml/min; Est GFR (African American) 101.6 ml/min; Est GFR (Non-African American) 87.7 ml/min; Magnesium 1.8 mg/dl (1.7-2.4)
[2022-01-07] MEDS: PANTOprazole 40 MG TAB PO SCH (08:27)
[2022-01-07] MEDS: GABAPENTIN 300 MG CAP PO SCH ×2 (08:27→13:35)
[2022-01-07] MEDS: GABAPENTIN 100 MG CAP PO SCH ×2 (08:28→13:36)
[2022-01-07] MEDS: INSULIN GLARGINE SOLOSTAR 100 UNITS/ML 3 ML PEN SC SCH (08:29)
[2022-01-07] MEDS: DORZOLAMIDE/TIMOLOL 22.3/6.8MG/ML 10 ML BTL OP SCH (08:30)
[2022-01-07] MEDS: INSULIN ASPART PER UNIT SC SCH ×2 (08:33→12:23)
[2022-01-07] MEDS: ACETAMINOPHEN 325 MG TAB PO PRN (08:33)
[2022-01-07] MEDS ORDERED: DOBUTamine HCL 12.5 MG/ML 20 ML VIAL IV ONE (08:57)
[2022-01-07] MEDS ORDERED: METOPROLOL TARTRATE 1 MG/ML VIAL IV ONE (08:57)
[2022-01-07] MEDS ORDERED: ATROPINE SULFATE 0.1 MG/ML 10ML SYR IV ONE (08:57)
[2022-01-07] MEDS ORDERED: NITROGLYCERIN SL 0.4 MG/TAB TAB ONE (08:58)
[2022-01-07] MEDS ORDERED: ASPIRIN 81 MG ECTAB PO SCH (09:00)
[2022-01-07] MEDS ORDERED: lisinopril 5 MG TAB PO SCH (09:00)
--- NOTE | 2022-01-07 10:35 | XCELERA ---
[id number]
[2022-01-07 10:44] LABS: Estimated Average Glucose 266 mg/dl; Hemoglobin A1C 10.9 % (4.5-5.6)
--- NOTE | 2022-01-07 13:53 | Discharge Summary ---
Date of Service January 07, 2022 Admission HPI Per Admitting Provider Billy Rachel is a 61 year old female who presents to the ER on the advice of her PCP due to shortness of breath and fatigue. The patient was here yesterday with a negative workup including CT angiogram negative for pulmonary embolism. Reportedly Dr Mendoza recommended admission for further cardiac ischemic workup at that time however the patient felt she misunderstood and felt her symptoms were due to her high glucose levels therefore declined. She finds it very difficult to explain her symptoms but generally over the last week she feels there has been an acute change in her fatigue and shortness of breath but not necessarily getting worse over the last week. I am less clear regarding her chest pain. She reports not being able to lie flat due to reflux but feels a pressure on her chest for the last few days that is different from this. Unknown if it is exertional, nothing makes it worse or better, unclear if there is a change in this pressure with eating. She notes chest pain on palpation but this is different from the feeling she is having. She does note slight indigestion but cannot explain to me how this is different to her chest pressure. She does report when she is up and about she feels like she is going to pass out. In the ER she is currently feeling a fluttery feeling in her chest (of note patient is currently in NSR on telemetry with HR 80 bpm). She feels her symptoms are due to her high glucose values although also notes her glucose values have been high since the start of the year when her insurance switched her insulin and she has been unable to control her glucose values si nce. More recent to this however she was started on Trulicity 5 weeks ago. She denies any diarrhea or abdominal pain (except on palpation). She reports no change to her diet: Breakfast - Atkins drink, banana, Lunch - meals on wheels, Supper - noodles, burger, mashed potatoes. Glucose routinely > 400+ on Dexacom. Her binder chainstitch recently advised increasing her dose and she took 55 units this morning since BSG > 250. Other than her insulin she did not take any of her other medications this morning. She is also complaining of a headache but reports she has these all the time and this is not a new symptoms. Occur all over her head. No one sided weakness, change in speech, hearing or vision (patient is legally blind). In the ER, EKG is unchanged, high sensitivity troponin negative. UA from yesterday and CXR today unremarkable for infective etiology. She was referred to medicine for admission and ongoing management of chest pain. Principal Diagnosis Hyperglycemia related to incorrect insulin pen technique Discharge Exam Constitutional WD/WN, vitals as above no acute distress Eyes PERRL, conjunctivae normal, anicteric sclerae ENMT external ear and nose normal, oropharynx normal Respiratory normal respiratory effort, lungs clear to auscultation Cardiovascular RRR, no murmur, no edema Gastrointestinal (Abdomen) normal bowel sounds, soft, nontender, no hepatosplenomegaly Neurologic moves all extremities and awake; no focal motor deficits and not confused Psychiatric A+Ox3, euthymic affect Discharge Data Allergies Allergy/AdvReac Type Severity Reaction Status Date / Time No Known Drug Allergies Allergy Unknown Verified 01/06/22 15:41 Consultations 01/06/22 14:05 ED Decision to Admit Stat Diabetes Follow up Diabetes Follow-up Needed for HgbA1c >9% Hospital Course (1) Shortness of breath: Billy Rachel is a 61 year old female observed overnight at [facility] from January 06-2021 due to fatigue and shortness of breath. Cardiac workup was subsequently negative and dobutamine stress echocardiogram was unremarkable. On review by our film librarian she was noted to be taking her insulin pen incorrectly (effectively not giving herself any insulin) leading to hyperglycemia and suspect fatigue related to this. On further discussion she wished to be switched to using syringe and vial therefore prescribed Novolog Mix 70-30 vial and will start off with 20 units twice a day (first dose tonight). Recommend she calls her binder chainstitch next week with glucose values for ongoing adjustments. (2) Fatigue: (3) Abdominal pain: (4) Acute hyperglycemia: (5) Poorly controlled type 2 diabetes mellitus: Total Time Total Time Spent Total Time Spent (In Minutes): 40 Discharge Plan Discharge Items Patient Disposition: Home - Self-Care Reason For Visit: SHORTNESS OF BREATH Discharge Diagnosis: Hyperglycemia related to incorrect insulin pen technique Activity: Resume your previous activity Non-emergency contact: Primary Care Provider Call non-emergency contact if: you have any medication questions and your symptoms worsen Follow-up/Referrals: Ricotta,Whit M., DO [Primary Care Provider] - Diet: Carb Consistent or DM2 Addtl Attending Provider Instructions: You were observed overnight at [facility] from January 06-2021 due to fatigue and shortness of breath. Cardiac workup was subsequently negative and dobutamine stress echocardiogram was unremarkable. On review by our film librarian you were noted to be taking your insulin pen incorrectly leading to your high glucose values and fatigue. On further discussion we will switch you to using Novolog Mix 70-30 vial which you can use with syringe and needle. Recommend starting with 20 units twice a day (first dose tonight) but call your binder chainstitch on Monday for ongoing adjustments of this based on your glucose measurements. Kind regards, Dr Derek Andrade Pending Studies at Discharge: No Stand-Alone Forms: My [facility], Smoking Cessation Medications and DC Order Prescriptions: New insulin asp prt-insulin aspart [Novolog Mix 70-30 U-100 Insuln] 100 unit/mL (70-30) solution 20 unit subcut BID Qty: 10 RF: 0 (DME) insulin syr/ndl U100 half prerna 0.5 mL 31 gauge x 15/64" syringe See Rx Instructions .Route Qty: 90 RF: 0 Continued sertraline 50 mg tablet 50 mg PO HS Qty: 30 RF: 2 levocetirizine [Xyzal] 5 mg tablet 5 mg PO HS Qty: 30 RF: 5 atorvastatin 40 mg tablet 40 mg PO HS Qty: 30 RF: 5 metoprolol succinate 100 mg tablet extended release 24 hr 50 mg PO HS Qty: 90 RF: 1 omeprazole 20 mg capsule,delayed release(DR/EC) 20 mg PO BID Qty: 180 RF: 1 lisinopril 5 mg tablet 5 mg PO QAM Qty: 90 RF: 1 metformin 500 mg tablet 500 mg PO BID Qty: 60 RF: 5 Trulicity 0.75 mg/0.5 mL pen injector 0.75 mg subcut .q week Qty: 2 RF: 3 meclizine 25 mg tablet 25 mg PO QID PRN (Reason: dizziness) Qty: 90 RF: 1 gabapentin 300 mg capsule 600 mg PO TID Qty: 180 RF: 1 gabapentin 100 mg capsule 100 mg PO TID Qty: 90 RF: 1 trazodone 50 mg tablet 50 mg PO HS Qty: 30 RF: 5 nystatin 100,000 unit/gram cream 1 applic TOP BID PRN (Reason: Skin Irritation) RF: 0 multivitamin Tablet 1 tab PO QPM RF: 0 melatonin [Melatin] 3 mg Tablet 3 mg PO HS PRN (Reason: Sleep) RF: 0 aspirin [Aspirin Low Dose] 81 mg Tablet,Delayed Release (Dr/Ec) 81 mg PO QAM RF: 0 PreserVision Lutein 226 mg-200 unit -5 mg-0.8 mg Capsule 1 cap PO HS RF: 0 dorzolamide-timolol 22.3-6.8 mg/mL drops 1 drp ophthalmic (eye) UD RF: 0 Discontinued insulin asp prt-insulin aspart [Novolog Mix 70-30FlexPen U-100] 100 unit/mL (70-30) insulin pen 32 unit subcut BID RF: 0 Discharge Orders: Discharge Order (Routine); Ordered 01/07/22 Ordered By: Derek Andrade Admission Data Admit Date/Time: 01/06/22 15:25 Attending Provider: Derek Andrade Admit Provider: Derek Andrade Primary Care Provider: Whit Kline Other Providers: Rocky Loera Other Interventions: Discharge Summary Assessment (RN) Last Done: 01/07/22 14:33 Coding Level of Care Code 73901 OBS Care - Discharge Diagnoses Shortness of breath R06.02 Fatigue R53.83 Abdominal pain R10.9 Abdominal location: unspecified location Acute hyperglycemia R73.9 Poorly controlled type 2 diabetes mellitus E11.65
--- NOTE | 2022-01-07 21:18 | Electrocardiogram Report ---
Test Reason : Blood Pressure : / mmHG Vent. Rate : 086 BPM Atrial Rate : 086 BPM P-R Int : 180 ms QRS Dur : 076 ms QT Int : 358 ms P-R-T Axes : 028 -06 070 degrees QTc Int : 428 ms Normal sinus rhythm Normal ECG When compared with ECG of 05-JAN-2022 13:05, No significant change was found Confirmed by Rickey Coy ([id number]) on 01/07/2022 9:17:37 PM Referred By: Confirmed By:Rickey Coy
== END 2022-01-07 14:40 | disposition home or self-care (01) ==
LOC: ED 12:16 → 2N 12:16

== ENCOUNTER 2024-12-18 15:20 | Observation (INO) ==
--- NOTE | 2024-12-18 15:31 | Emergency Department Note ---
Impression & Plan Weakness, Acute UTI, Acute hyponatremia ED Provider Note NAME: SHAQUILLE MCINTOSH AGE: 64 SEX: F : 1960 ARRIVES VIA: Ambulance INFORMANT: Patient ED PROVIDER(S): Aelx Mendoza DO CHIEF COMPLAINT: Weakness HPI: Patient is a 64-year-old female who presents to the ER with a past medical history of diabetes, hyponatremia, cystitis, morbid obesity, cardiomyopathy, hypertension, hyperlipidemia who presents to the ER for weakness. She notes she has been very weak today. Last night she started with cough and congestion. No reported fevers. No chest pain or shortness of breath. She notes that she is currently being treated for UTI. She is on Bactrim. She tried to get up twice today and slid off the couch both times. Last time she did bump a dinner tray. She denies any head or neck pain with this. No other complaints. ADDITIONAL HISTORY OBTAINED: EMS provided additional history and notes that patient has been unable to walk today as she has been so weak. also notes that he cannot lift her up anymore and she needs to be admitted. Chronic Medical/Social Conditions Affecting Care: Per HPI PAST MEDICAL HISTORY:See Below PAST SURGICAL HISTORY:See Below FAMILY HISTORY:See Below SOCIAL HISTORY:See Below HOME MEDICATIONS:See Below ALLERGIES:See Below VITALS:See Below PHYSICAL EXAMINATION: GENERAL: Sitting up in bed, alert, well appearing, well nourished, no distress, non-toxic HEAD: NC/AT EYE EXAM: normal conjunctiva. PERRL and EOM's grossly intact. OROPHARYNX: no exudate, no erythema, lips, buccal mucosa, and tongue normal and mucous membranes are moist NECK: supple, no nuchal rigidity, no adenopathy, non-tender LUNGS: Clear to auscultation. Normal chest wall mechanics HEART: no murmurs, S1 normal and S2 normal ABDOMEN: abdomen soft, non-tender, normo-active bowel sounds, no masses, no rebound or guarding. BACK: Back is symmetrical on inspection and there is no deformity, no midline tenderness, no CVA tenderness. SKIN: no rashes and no bruising UPPER EXTREMITIES: upper extremities are grossly normal. LOWER EXTREMITIES: No pitting edema. NEURO EXAM: Normal sensorium, cranial nerves II-XII grossly intact, normal speech, no gross weakness of arms, no gross weakness of legs. MEDICAL DECISION MAKING: Patient is a 64-year-old female who presents ER for weakness. IV was established and blood work was obtained. External medication list was reviewed and did show Bactrim. Labs show mild leukocytosis of 12,000. Mild anemia at 11. BMP with mild hyponatremia at 133. LFTs and bilirubin were unremarkable. Troponin negative. Lipase normal. UA consistent with UTI. Viral panel was negative. Chest x-ray was clean. She did not hit anything with the falls. She is at her baseline. Considered CT but no benefit at this time. She was given IV Rocephin and IV fluids. Updated bedside discussed with the hospitalist for further evaluation management treatment. Consults/Care Managements Discussions: Per [facility] Triage Nursing notes reviewed. Limited review of prior medical records performed Vital Signs: reviewed and remarkable for no significant abnormalities Differential diagnosis: Infection, dehydration, metabolic abnormality, hypo/hyperglycemia, electrolyte disturbance, anemia, hypoxia, cardiac sources, intracerebral event, toxicologic, neurologic, as well as other pathologies. ER treatment provided: See below Diagnostics interpreted by me include EKG and cardiac monitoring as listed below: -Cardiac Monitoring: An order was placed for continuous cardiac monitoring. The monitor shows a rate of 80 with sinus rhythm. -ECG: Sinus rhythm rate 66 Normal axis no PVCs QTc 4 2 -Laboratory studies:Interpreted by me as stated above in MDM and shown below. Imaging studies: Xrays: As interpreted by me: Portable AP upright 1 view of the chest shows no focal M-Trate CTs show: none Procedures:none Critical Care: None Past Med/Surg History Problem List (Updated 12/18/24 @ 21:20 by Alex Mendoza DO) Acute hyponatremia (Acute) Acute UTI (Acute) Weakness (Acute) Recurrent falls UTI (urinary tract infection) Ambulatory dysfunction Incontinence (Chronic) Chronic cystitis (Chronic) Chest pain Elevated serum immunoglobulin free light chain level Proteinuria Albuminuria Hyponatremia Controlled type 2 diabetes mellitus with neurologic complication, with long-term current use of insulin Vitamin D deficiency Urinary incontinence Cervical stenosis of spinal canal Rotator cuff tear, right Tendinitis of right rotator cuff Noncompliance with medications (Acute) H/O acute pancreatitis 01/2016 pancreatitis and ketoacidosis hospitalization Diabetes mellitus with neurological manifestations, uncontrolled Esophageal dysphagia TMJ (temporomandibular joint disorder) Metabolic syndrome Morbid obesity Insomnia Cervical radiculopathy Acquired deviated nasal septum Legally blind 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 ear 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) Arthritis, lumbar spine Chronic back pain SNHL (sensorineural hearing loss) Peripheral neuropathy Osteoarthritis History of cardiomyopathy Restless legs syndrome Proliferative diabetic retinopathy with macular edema Nocturnal hypoxia Depression with anxiety Arteriosclerosis of coronary artery Acid reflux Hypertension Hyperlipidemia Medical History Abnormal urine cytology Dietary counseling and surveillance Diabetes type 2, uncontrolled Dizziness ETD (eustachian tube dysfunction) Poorly controlled type 2 diabetes mellitus Hx of vertigo Anxiety Stable angina DM (diabetes mellitus), type 2, uncontrolled w/ophthalmic complication Surgical History S/P cervical spinal fusion (08/2022) H/O neck surgery S/P nasal septoplasty (09/09/21) S/P ear surgery S/p bilateral myringotomy with tube placement History of uvulopalatopharyngoplasty History of esophagogastroduodenoscopy (EGD) History of colonoscopy History of cardiac cath H/O tooth extraction S/P tonsillectomy S/P total hysterectomy and bilateral salpingo-oophorectomy S/P cataract surgery H/O elbow surgery S/P adenoidectomy Family History Mother Hypertension Diabetes Congestive heart failure Stroke Sister Lymphoma Father Diabetes Brother Hypertension Denies family history of Ovarian cancer Prostate cancer Myocardial infarction Breast cancer Colorectal cancer Social History Smoking Status: Never smoker Second Hand Exposure: Yes; Do You Dip or Chew Tobacco: No; Hx Alcohol Use: Yes Alcohol type: wine Hx Substance Use: No Preferred Language: Liberian Communication Ability: Effective Communication Ability Comment: legally blind Visual Impairment: Diminished Hearing Ability: Normal Electrical Accessories Assembler Required: No Beliefs That Will Affect Care: None marital status: Current Living Situation: Spouse current occupational status: disabled current occupation: [employer] How many Children do You have: 0 How many Children do You have Comment: has 4 children Feels Safe at Home: Yes Childhood Exposure to Second-Hand Smoke: Yes Diet: regular Diet Comment: regular caffeine: Yes (diet mt dew) during the past year weight has: increased > 10 lbs Dental Care, Regularly: Yes Physical Activity Frequency: 1-2 Times per Week Physical Activity Frequency Comment: limited Seatbelt Use: always Sunscreen Use: Yes Assistive Devices: Walker Allergies Allergies Allergy/AdvReac Type Severity Reaction Status Date / Time dapagliflozin [From [facility]] AdvReac Intermediate UTI and Verified 12/18/24 18:30 hyperglycemia Xeroform Allergy Intermediate SKIN Uncoded 12/18/24 18:30 IRRITATION/RASH Home Meds Home Medications Medication Instructions Recorded Confirmed multivitamin 1 tab PO QPM 08/01/18 12/18/24 aspirin 81 mg tablet,delayed 81 mg PO QAM 08/07/19 12/18/24 release (Rahul Low Dose Aspirin) vit C 226 mg-vit E 90 mg-copper 1 cap PO HS 12/08/21 12/18/24 0.8 mg-zinc oxide-lutein 5 mg capsule (PreserVision Lutein) mecobalamin (vitamin B12) 1,000 1,000 mcg PO DAILY 05/17/22 12/18/24 mcg chewable tablet dorzolamide 22.3 mg-timolol 6.8 1 drp ophthalmic (eye) BID 06/03/24 12/18/24 mg/mL eye drops calcium no.26 167 mg-magnesium 1 cap PO DAILY 12/18/24 12/18/24 no.15 83 mg-zinc 5 mg capsule (Pmjnhwe-Qmfupppcf-Mdwi Complex) cholecalciferol (vitamin D3) 25 0 mcg PO DAILY 12/18/24 12/18/24 mcg (1,000 unit) capsule (Vitamin D3) dulaglutide 1.5 mg/0.5 mL 1.5 mg subcut WK 12/18/24 12/18/24 subcutaneous pen injector insulin lispro protamine-lispro 10 unit subcut BID 12/18/24 12/18/24 100 unit/mL (75-25) subcutaneous susp (Humalog Mix 75-25(U-100)Insuln) melatonin 3 mg tablet 3 mg PO HS PRN Sleep 12/18/24 12/18/24 Previous Rx's Medication Instructions Recorded Oxygen Home #1 ea 07/24/23 diaper,brief,adult,disposable #68 ea 03/14/24 (Depend Underwear For Women XL) insulin syringe-needle U-100 1/2 #200 ea 04/08/24 mL 31 gauge x 15/64" (BD Veo Insulin Syringe Ultra-Fine) sertraline 50 mg tablet 50 mg PO HS #90 tabs 04/15/24 lisinopril 10 mg tablet 10 mg PO QAM #90 tabs 05/02/24 blood-glucose sensor (Dexcom G7 #7 ea 08/27/24 Sensor device) famotidine 20 mg tablet 20 mg PO HS #90 tabs 09/05/24 meclizine 25 mg tablet 25 mg PO QID PRN dizziness #90 tabs 09/05/24 metformin 500 mg tablet 500 mg PO BID #60 tabs 09/19/24 metoprolol succinate 100 mg 50 mg (1/2 x 100 mg) PO HS #90 tabs 10/24/24 tablet,extended release 24 hr atorvastatin 40 mg tablet 40 mg PO HS #30 tabs 11/28/24 gabapentin 100 mg capsule 100 mg PO TID #90 caps 11/28/24 gabapentin 300 mg capsule 600 mg (2 x 300 mg) PO TID #180 11/28/24 caps levocetirizine 5 mg tablet (Xyzal) 5 mg PO HS #30 tabs 11/28/24 omeprazole 20 mg capsule,delayed 20 mg PO BID #180 caps 11/28/24 release trazodone 50 mg tablet 100 mg (2 x 50 mg) PO HS #30 tabs 12/02/24 nystatin 100,000 unit/gram topical 1 applic topical BID PRN Skin 12/13/24 cream Irritation #30 grams solifenacin 5 mg tablet (Vesicare) 5 mg PO DAILY #90 tabs 12/13/24 sulfamethoxazole 800 1 tab PO BID 7 days #14 tabs 12/16/24 mg-trimethoprim 160 mg tablet (Bactrim DS) Results & Data (ED) Vital Signs Vital Signs - 24 hr 12/18/24 15:26 12/18/24 16:24 12/18/24 16:51 Temperature 36.7 C Temperature Source Oral Pulse Rate 80 72 Pulse Rate [Left Apical] 71 Respiratory Rate 20 18 Respiratory Effort / Characteristics Non-Labored Spontaneous Non-Labored Spontaneous Respiratory Depth Normal Normal Respiratory Pattern Regular Regular Blood Pressure 128/55 L Blood Pressure [Right Arm] 133/70 Blood Pressure Mean 79 Blood Pressure Mean [Right Arm] 91 Blood Pressure Position [Right Arm] Semi-fowlers Pulse Oximetry 93 94 Oxygen Delivery Method Room Air Room Air Sepsis Recent Fever Within 48 Hours No Sepsis New/Unexplained Change in Mental Status N/A Sepsis Action Taken by Nursing No Action Required 12/18/24 17:00 12/18/24 17:00 12/18/24 17:24 Temperature Temperature Source Pulse Rate 76 Pulse Rate [Left Apical] Respiratory Rate 17 Respiratory Effort / Characteristics Respiratory Depth Respiratory Pattern Blood Pressure 137/67 137/67 Blood Pressure [Right Arm] Blood Pressure Mean 89 89 Blood Pressure Mean [Right Arm] Blood Pressure Position [Right Arm] Pulse Oximetry 95 Oxygen Delivery Method Room Air Sepsis Recent Fever Within 48 Hours Sepsis New/Unexplained Change in Mental Status Sepsis Action Taken by Nursing 12/18/24 17:30 12/18/24 17:39 12/18/24 17:45 Temperature Temperature Source Pulse Rate 69 69 Pulse Rate [Left Apical] Respiratory Rate 19 18 Respiratory Effort / Characteristics Respiratory Depth Respiratory Pattern Blood Pressure 143/67 H Blood Pressure [Right Arm] Blood Pressure Mean 92 Blood Pressure Mean [Right Arm] Blood Pressure Position [Right Arm] Pulse Oximetry 96 96 Oxygen Delivery Method Room Air Room Air Sepsis Recent Fever Within 48 Hours Sepsis New/Unexplained Change in Mental Status Sepsis Action Taken by Nursing 12/18/24 17:48 12/18/24 18:00 12/18/24 18:00 Temperature Temperature Source Pulse Rate 74 Pulse Rate [Left Apical] Respiratory Rate 16 Respiratory Effort / Characteristics Respiratory Depth Respiratory Pattern Blood Pressure 142/86 H 142/86 H Blood Pressure [Right Arm] Blood Pressure Mean 111 111 Blood Pressure Mean [Right Arm] Blood Pressure Position [Right Arm] Pulse Oximetry 96 Oxygen Delivery Method Room Air Sepsis Recent Fever Within 48 Hours Sepsis New/Unexplained Change in Mental Status Sepsis Action Taken by Nursing 12/18/24 18:00 12/18/24 18:00 12/18/24 18:00 Temperature Temperature Source Pulse Rate Pulse Rate [Left Apical] Respiratory Rate Respiratory Effort / Characteristics Respiratory Depth Respiratory Pattern Blood Pressure 142/86 H 142/86 H 142/86 H Blood Pressure [Right Arm] Blood Pressure Mean 111 111 111 Blood Pressure Mean [Right Arm] Blood Pressure Position [Right Arm] Pulse Oximetry Oxygen Delivery Method Sepsis Recent Fever Within 48 Hours Sepsis New/Unexplained Change in Mental Status Sepsis Action Taken by Nursing 12/18/24 18:00 12/18/24 18:00 12/18/24 18:00 Temperature Temperature Source Pulse Rate Pulse Rate [Left Apical] Respiratory Rate Respiratory Effort / Characteristics Respiratory Depth Respiratory Pattern Blood Pressure 142/86 H 142/86 H 142/86 H Blood Pressure [Right Arm] Blood Pressure Mean 111 111 111 Blood Pressure Mean [Right Arm] Blood Pressure Position [Right Arm] Pulse Oximetry Oxygen Delivery Method Sepsis Recent Fever Within 48 Hours Sepsis New/Unexplained Change in Mental Status Sepsis Action Taken by Nursing 12/18/24 18:00 12/18/24 18:00 12/18/24 18:00 Temperature Temperature Source Pulse Rate Pulse Rate [Left Apical] Respiratory Rate Respiratory Effort / Characteristics Respiratory Depth Respiratory Pattern Blood Pressure 142/86 H 142/86 H 142/86 H Blood Pressure [Right Arm] Blood Pressure Mean 111 111 111 Blood Pressure Mean [Right Arm] Blood Pressure Position [Right Arm] Pulse Oximetry Oxygen Delivery Method Sepsis Recent Fever Within 48 Hours Sepsis New/Unexplained Change in Mental Status Sepsis Action Taken by Nursing 12/18/24 18:09 12/18/24 18:12 12/18/24 18:24 Temperature Temperature Source Pulse Rate 71 75 70 Pulse Rate [Left Apical] Respiratory Rate 19 22 17 Respiratory Effort / Characteristics Respiratory Depth Respiratory Pattern Blood Pressure Blood Pressure [Right Arm] Blood Pressure Mean Blood Pressure Mean [Right Arm] Blood Pressure Position [Right Arm] Pulse Oximetry 95 96 95 Oxygen Delivery Method Room Air Room Air Room Air Sepsis Recent Fever Within 48 Hours Sepsis New/Unexplained Change in Mental Status Sepsis Action Taken by Nursing Laboratory Data 12/18/24 16:37 12/18/24 16:37 Lab Results 12/18/24 12/18/24 Range/Units 15:43 16:37 WBC 12.07 H (4.8-10.8) K/ul RBC 3.93 L (4.20-5.40) M/uL Hgb 11.6 L (12.0-16.0) g/dl Hct 34.9 L (37.0-47.0) % MCV 88.8 (80.0-100.0) fL MCH 29.5 (25.0-34.0) pg MCHC 33.2 (32.0-36.0) g/dL RDW Std Deviation 43.1 (36.4-46.3) fL RDW Coeff of Salomon 13.1 (11.5-14.5) % Plt Count 212 (130-400) K/uL MPV 12.1 (9.4-12.4) fL Immature Gran % (Auto) 0.3 % Neut % (Auto) 77.7 % Lymph % (Auto) 14.2 % Gage % (Auto) 6.4 % Eos % (Auto) 1.3 % Baso % (Auto) 0.1 % Neut # (Auto) 9.38 H (1.40-6.50) K/uL Lymph # (Auto) 1.71 (1.20-3.40) K/uL Gage # (Auto) 0.77 H (0.11-0.59) K/uL Eos # (Auto) 0.16 (0.00-0.50) K/uL Baso # (Auto) 0.01 (0.00-0.20) K/uL Immature Gran # (Auto) 0.04 (0.01-0.20) K/uL Sodium 133 L (136-145) mmol/L Potassium 4.8 (3.5-5.1) mmol/L Chloride 102 (98-107) mmol/L Carbon Dioxide 29 (21-32) mmol/L Anion Gap 2 L (3-11) BUN 20 (6-23) mg/dl Creatinine 1.19 (0.6-1.2) mg/dl Est Cr Clr Drug Dosing 50.8 ml/min eGFR 50.43 BUN/Creatinine Ratio 16.8 (10-20) Glucose 133 H (70-99(Fasting)) mg/dl Calcium 9.0 (8.6-10.3) mg/dl Total Bilirubin 0.6 (0.2-1.0) mg/dl AST 18 (13-39) U/L ALT 12 (7-52) U/L Alkaline Phosphatase 64 (34-104) U/L Troponin I High Sens < 2.3 (0-14) pg/ml Total Protein 6.6 (6.0-8.3) gm/dl Albumin 3.8 (3.4-5.0) gm/dl Globulin 2.8 (2.5-4.0) gm/dl Albumin/Globulin Ratio 1.4 (0.9-2) Lipase 20 (11-82) U/L Adenovirus (PCR) Not Detected (NotDetected) B. pertussis DNA (PCR) Not Detected (NotDetected) B.parapertussis DNA PCR Not Detected (NotDetected) C. pneumoniae DNA (PCR) Not Detected (NotDetected) Coronavirus OC43 (PCR) Not Detected (NotDetected) Coronavirus HKU1 (PCR) Not Detected (NotDetected) Coronavirus 229E (PCR) Not Detected (NotDetected) SARS-CoV-2 (PCR) Not Detected (NotDetected) Coronavirus NL63 (PCR) Not Detected (NotDetected) Human Metapneumovir PCR Not Detected (NotDetected) Influenza Type A (PCR) Not Detected (NotDetected) Influenza Type B (PCR) Not Detected (NotDetected) M. pneumoniae (PCR) Not Detected (NotDetected) Parainfluenza 1 (PCR) Not Detected (NotDetected) Parainfluenza 2 (PCR) Not Detected (NotDetected) Parainfluenza 3 (PCR) Not Detected (NotDetected) Parainfluenza 4 (PCR) Not Detected (NotDetected) RSV (PCR) Not Detected (NotDetected) Entero/Rhino (PCR) Not Detected (NotDetected) Administered Medications Discontinued Medications Sodium Chloride (Nss) 1,000 mls @ 999 mls/hr IV .Q1H1M ONE Stop: 12/18/24 16:28 Last Infusion: 12/18/24 17:37 Dose: Infused Documented By: [facility] Admin: 12/18/24 16:49 Dose: 999 mls/hr Documented By: [facility] Ceftriaxone Sodium (Rocephin) 2,000 mg in 50 mls @ 100 mls/hr IV NOW STA; Protocol Stop: 12/18/24 18:02 Last Infusion: 12/18/24 20:48 Dose: Infused [place] [facility] [place]: 12/18/24 19:14 Dose: 100 mls/hr Documented By: [facility] Imaging Data Radiologist's Impression: Chest X-Ray 12/18/24 15:28 EXAM: Radiograph of the Chest 1 View INDICATION: Weakness TECHNIQUE: Frontal view of the chest. COMPARISON: 05/11/2024 FINDINGS: Lungs and pleural spaces: No consolidation or pulmonary edema. No pleural effusion or pneumothorax. Heart: Shape and configuration within normal limits allowing for technique. Mediastinum: Normal contour. Bones/joints: Stable posterior cervical thoracic hardware. Soft tissues: No abnormality noted. No radiopaque foreign body noted. Upper abdomen: No abnormality noted. IMPRESSION: No acute cardiopulmonary disease. ACT 112: N/A Electronically signed by Kim Iraheta 12-18-2024 4:31 PM Discharge Plan Visit Data Chief Complaint: Fall Stated Complaint: FALL ED Provider: Alex Mendoza Discharge Problem: Weakness, Acute UTI, Acute hyponatremia Patient Disposition: Admitted As Inpatient Discharge Instructions Interventions: ED Discharge Assessment Last Done: 12/18/24 20:18
--- NOTE | 2024-12-18 16:31 | XRay Report ---
EXAM: Radiograph of the Chest 1 View INDICATION: Weakness TECHNIQUE: Frontal view of the chest. COMPARISON: 05/11/2024 FINDINGS: Lungs and pleural spaces: No consolidation or pulmonary edema. No pleural effusion or pneumothorax. Heart: Shape and configuration within normal limits allowing for technique. Mediastinum: Normal contour. Bones/joints: Stable posterior cervical thoracic hardware. Soft tissues: No abnormality noted. No radiopaque foreign body noted. Upper abdomen: No abnormality noted. IMPRESSION: No acute cardiopulmonary disease. ACT 112: N/A Electronically signed by Kim Iraheta 12-18-2024 4:31 PM
[2024-12-18] MEDS: SODIUM CHLORIDE 0.9% 1,000 ML IV ONE (16:49)
[2024-12-18 17:00] LABS: Adenovirus PCR Not Detected (NotDetected); Bordetella parapertussis PCR Not Detected (NotDetected); Bordetella pertussis PCR Not Detected (NotDetected); Chlamydia pneumoniae PCR Not Detected (NotDetected); Coronavirus 229E PCR Not Detected (NotDetected); Coronavirus CoV-2 (COVID19)PCR Not Detected (NotDetected); Coronavirus HKU1 PCR Not Detected (NotDetected); Coronavirus NL63 PCR Not Detected (NotDetected); Coronavirus OC43PCR Not Detected (NotDetected); Human Metapneumovirus PCR Not Detected (NotDetected); Influenza A PCR Not Detected (NotDetected); Influenza B PCR Not Detected (NotDetected); Mycoplasma pneumoniae PCR Not Detected (NotDetected); Parainfluenza Virus 1 PCR Not Detected (NotDetected); Parainfluenza Virus 2 PCR Not Detected (NotDetected); Parainfluenza Virus 3 PCR Not Detected (NotDetected); Parainfluenza Virus 4 PCR Not Detected (NotDetected); Respiratory Syncytial VirusPCR Not Detected (NotDetected); Rhinovirus/Enterovirus PCR Not Detected (NotDetected)
[2024-12-18 17:01] LABS: Basophils # (auto) 0.01 K/uL (0.00-0.20); Basophils % (auto) 0.1 %; Eosinophils # (auto) 0.16 K/uL (0.00-0.50); Eosinophils % (auto) 1.3 %; Hematocrit (blood only) 34.9 % (37.0-47.0); Hemoglobin 11.6 g/dl (12.0-16.0); Immature Granulocytes # (auto) 0.04 K/uL (0.01-0.20); Immature Granulocytes % (auto) 0.3 %; Lymphocytes # (auto) 1.71 K/uL (1.20-3.40); Lymphocytes % (auto) 14.2 %; Mean Corpuscular Hemoglobin 29.5 pg (25.0-34.0); Mean Corpuscular Hgb Conc 33.2 g/dL (32.0-36.0); Mean Corpuscular Volume 88.8 fL (80.0-100.0); Mean Platelet Volume 12.1 fL (9.4-12.4); Monocytes # (auto) 0.77 K/uL (0.11-0.59); Monocytes % (auto) 6.4 %; Neutrophils # (auto) 9.38 K/uL (1.40-6.50); Neutrophils % (auto) 77.7 %; Platelet Count 212 K/uL (130-400); RDW Coefficient of Variation 13.1 % (11.5-14.5); RDW Standard Deviation 43.1 fL (36.4-46.3); Red Blood Count 3.93 M/uL (4.20-5.40); White Blood Count 12.07 K/ul (4.8-10.8)
[2024-12-18 17:22] LABS: Alanine Aminotransferase 12 U/L (7-52); Albumin Globulin Ratio 1.4 (0.9-2); Albumin Level 3.8 gm/dl (3.4-5.0); Alkaline Phosphatase 64 U/L (34-104); Anion Gap 2 (3-11); Aspartate Aminotransferase 18 U/L (13-39); BUN Creatinine Ratio 16.8 (10-20); Bilirubin,Total 0.6 mg/dl (0.2-1.0); Blood Urea Nitrogen 20 mg/dl (6-23); Carbon Dioxide 29 mmol/L (21-32); Chloride 102 mmol/L (98-107); Creatinine Clr Calc Pharmacy 50.8 ml/min; Globulin 2.8 gm/dl (2.5-4.0); Glucose 133 mg/dl (70-99(Fasting)); Lipase 20 U/L (11-82); Potassium 4.8 mmol/L (3.5-5.1); Sodium 133 mmol/L (136-145); Total Protein 6.6 gm/dl (6.0-8.3)
--- NOTE | 2024-12-18 17:43 | History & Physical Report ---
Date of Service December 18, 2024 Assessment & Plan (1) Ambulatory dysfunction: (2) UTI (urinary tract infection): (3) Recurrent falls: Plan Billy is a 64-year-old female who presented on 12/18 after sustaining 2 falls at home, likely secondary to her UTI. No LOC. Not on blood thinners. Patient reports she "grazed" the side of a food tray in the living room, but otherwise no head strike. She reports that her legs feel "rubbery" whenever she goes to stand. Patient is currently being treated for UTI with Bactrim. #Recurrent falls/ambulatory dysfunction Suspect secondary to UTI/Bactrim PT/OT evaluations appreciated Fall precautions #UTI Patient was prescribed Bactrim for UTI on 12/16; d/c Patient's urine culture on 12/13/2024 grew pansensitive Klebsiella variicola Ceftriaxone 2000 mg IV q24h Follow current UCx #Atypical chest pain/chest palpitations Patient reports that on the evening of 12/17, she developed chest pain/palpitations/SOB while trying to sleep She does report she was told she had a "irregular heartbeat" in 1997; ? A-fib She did present to the ED in May 2024 for intermittent episodes of chest pain that were brief and self-limiting; troponin negative x 2 at that time BioFire negative CXR without acute findings ECG and troponin ordered, pending Continuous telemetry monitoring for now #T2DM Last A1c at 6.4% on 11/07/2024 Hold metformin SSI with target BSG range 110-140mg/dL, CF 50, carb ratio 15 T2DM diet BSG ACHS Adjust regimen as needed #Legally blind Noted Chronic stable conditions: HTNmetoprolol, lisinopril HLDatorvastatin GERDfamotidine, PPI Anxiety/depressionsertraline Disposition: Admit to MedSurg telemetry Full code T2DM diet VTE PPx: Lovenox 40 mg SQ q24h History of Present Illness Chief Complaint: Recurrent falls Primary Care Provider: Whit Kline DO Billy is a pleasant 64-year-old female with PMH of legal blindness, T2DM, pancreatitis, esophageal dysphagia, metabolic syndrome, cardiomyopathy, HTN, and HLD. She presented via EMS on 12/18 for falls x 2 with inability to stand up. The first fall occurred shortly after waking up. Patient was sleeping in the living room, and tried to get herself up off the couch this morning. However when she stood, her legs collapsed on her, and she reports she "took herself down to the floor" gradually. She did not have anything on her way down. Paramedics were called, and they were able to get her up and left. This then occurred again around 2 PM. Patient was being assisted by her to get up to the bathroom, and her legs gave out from under her. She grazed the back of her on the TV tray in the living room on the way down. No LOC. No blood thinners. She reports that her legs feel "rubbery" whenever she stands. She ambulates with a walker at baseline and a cane as needed. Patient is currently on antibiotics (Bactrim) for a UTI. Patient took her regular morning medicines today; the only recent change medication was starting Bactrim 2 days ago for her UTI. Patient has been on Bactrim in the past for UTIs, but has never had a reaction to it. Patient sleeps with supplemental oxygen (2L NC). No CPAP at night. Additionally, the patient notes that she had chest pain and palpitations last night prior to going to bed. She had difficulty sleeping as this made it hard to breathe. She does believe she had a cardiac event back in 1997, but is unsure exactly what this was; believes it may have been called a "irregular heartbeat". No prior history of ID or heart stents. The chest pain lasted for approximately 30 minutes then subsided on its own. No radiation to the shoulders or down the arms bilaterally. Patient denies history of allergies to antibiotics such as penicillin. She denies smoking, tobacco use, recent alcohol use. She lives with her of 44 years and their 2 cats. Patient's vitals are stable at time admission. ED course: Ceftriaxone 2000 mg IV NSS 1000 mL IV ROS: Patient endorses LE weakness, lightheadedness when standing, headaches, chest pain/chest palpitations/SOB/wheezing last night (resolved), burning with urination, increased urinary frequency, or unsure of blood in the urine (patient is legally blind). Patient denies fever, night-sweats, rashes, bruising, tick bites, pleuritic CP, abdominal pain, and N/V/D. Allergies Allergy/AdvReac Type Severity Reaction Status Date / Time dapagliflozin [From [facility]] AdvReac Intermediate UTI and Verified 12/18/24 18:30 hyperglycemia Xeroform Allergy Intermediate SKIN Uncoded 12/18/24 18:30 IRRITATION/RASH Home Medications Medication Instructions Recorded Confirmed Type multivitamin 1 tab PO QPM 08/01/18 12/18/24 History aspirin 81 mg tablet,delayed 81 mg PO QAM 08/07/19 12/18/24 History release (Rahul Low Dose Aspirin) vit C 226 mg-vit E 90 mg-copper 1 cap PO HS 12/08/21 12/18/24 History 0.8 mg-zinc oxide-lutein 5 mg capsule (PreserVision Lutein) mecobalamin (vitamin B12) 1,000 1,000 mcg PO DAILY 05/17/22 12/18/24 History mcg chewable tablet Oxygen Home #1 ea 07/24/23 11/07/24 Rx diaper,brief,adult,disposable #68 ea 03/14/24 11/07/24 Rx (Depend Underwear For Women XL) insulin syringe-needle U-100 1/2 #200 ea 04/08/24 11/07/24 Rx mL 31 gauge x 15/64" (BD Veo Insulin Syringe Ultra-Fine) sertraline 50 mg tablet 50 mg PO HS #90 tabs 04/15/24 12/18/24 Rx lisinopril 10 mg tablet 10 mg PO QAM #90 tabs 05/02/24 12/18/24 Rx dorzolamide 22.3 mg-timolol 6.8 1 drp ophthalmic (eye) BID 06/03/24 12/18/24 History mg/mL eye drops blood-glucose sensor (Dexcom G7 #7 ea 08/27/24 11/07/24 Rx Sensor device) famotidine 20 mg tablet 20 mg PO HS #90 tabs 09/05/24 12/18/24 Rx meclizine 25 mg tablet 25 mg PO QID PRN dizziness #90 tabs 09/05/24 12/18/24 Rx metformin 500 mg tablet 500 mg PO BID #60 tabs 09/19/24 12/18/24 Rx metoprolol succinate 100 mg 50 mg (1/2 x 100 mg) PO HS #90 tabs 01/30/25 03/26/25 Rx tablet,extended release 24 hr atorvastatin 40 mg tablet 40 mg PO HS #30 tabs 11/28/24 12/18/24 Rx gabapentin 100 mg capsule 100 mg PO TID #90 caps 11/28/24 12/18/24 Rx gabapentin 300 mg capsule 600 mg (2 x 300 mg) PO TID #180 11/28/24 12/18/24 Rx caps levocetirizine 5 mg tablet (Xyzal) 5 mg PO HS #30 tabs 11/28/24 12/18/24 Rx omeprazole 20 mg capsule,delayed 20 mg PO BID #180 caps 11/28/24 12/18/24 Rx release trazodone 50 mg tablet 100 mg (2 x 50 mg) PO HS #30 tabs 12/02/24 12/18/24 Rx nystatin 100,000 unit/gram topical 1 applic topical BID PRN Skin 12/13/24 12/18/24 Rx cream Irritation #30 grams solifenacin 5 mg tablet (Vesicare) 5 mg PO DAILY #90 tabs 12/13/24 12/18/24 Rx sulfamethoxazole 800 1 tab PO BID 7 days #14 tabs 12/16/24 12/18/24 Rx mg-trimethoprim 160 mg tablet (Bactrim DS) calcium no.26 167 mg-magnesium 1 cap PO DAILY 12/18/24 12/18/24 History no.15 83 mg-zinc 5 mg capsule (Zmnbrga-Wcmocnoma-Jlid Complex) cholecalciferol (vitamin D3) 25 0 mcg PO DAILY 12/18/24 12/18/24 History mcg (1,000 unit) capsule (Vitamin D3) dulaglutide 1.5 mg/0.5 mL 1.5 mg subcut WK 12/18/24 12/18/24 History subcutaneous pen injector insulin lispro protamine-lispro 10 unit subcut BID 12/18/24 12/18/24 History 100 unit/mL (75-25) subcutaneous susp (Humalog Mix 75-25(U-100)Insuln) melatonin 3 mg tablet 3 mg PO HS PRN Sleep 12/18/24 12/18/24 History Past Med/Surg History Problem List (Updated 12/18/24 @ 18:45 by Epifanio Farmer PA-C) Recurrent falls UTI (urinary tract infection) Ambulatory dysfunction Incontinence (Chronic) Chronic cystitis (Chronic) Chest pain Elevated serum immunoglobulin free light chain level Proteinuria Albuminuria Hyponatremia Controlled type 2 diabetes mellitus with neurologic complication, with long-term current use of insulin Vitamin D deficiency Urinary incontinence Cervical stenosis of spinal canal Rotator cuff tear, right Tendinitis of right rotator cuff Noncompliance with medications (Acute) H/O acute pancreatitis 01/2016 pancreatitis and ketoacidosis hospitalization Diabetes mellitus with neurological manifestations, uncontrolled Esophageal dysphagia TMJ (temporomandibular joint disorder) Metabolic syndrome Morbid obesity Insomnia Cervical radiculopathy Acquired deviated nasal septum Legally blind 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 ear 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) Arthritis, lumbar spine Chronic back pain SNHL (sensorineural hearing loss) Peripheral neuropathy Osteoarthritis History of cardiomyopathy Restless legs syndrome Proliferative diabetic retinopathy with macular edema Nocturnal hypoxia Depression with anxiety Arteriosclerosis of coronary artery Acid reflux Hypertension Hyperlipidemia Medical History Abnormal urine cytology Dietary counseling and surveillance Diabetes type 2, uncontrolled Dizziness ETD (eustachian tube dysfunction) Poorly controlled type 2 diabetes mellitus Hx of vertigo Anxiety Stable angina DM (diabetes mellitus), type 2, uncontrolled w/ophthalmic complication Surgical History S/P cervical spinal fusion (08/2022) H/O neck surgery S/P nasal septoplasty (09/09/21) S/P ear surgery S/p bilateral myringotomy with tube placement History of uvulopalatopharyngoplasty History of esophagogastroduodenoscopy (EGD) History of colonoscopy History of cardiac cath H/O tooth extraction S/P tonsillectomy S/P total hysterectomy and bilateral salpingo-oophorectomy S/P cataract surgery H/O elbow surgery S/P adenoidectomy Family History Mother Hypertension Diabetes Congestive heart failure Stroke Sister Lymphoma Father Diabetes Brother Hypertension Denies family history of Ovarian cancer Prostate cancer Myocardial infarction Breast cancer Colorectal cancer Social History Smoking Status: Never smoker Second Hand Exposure: Yes; Do You Dip or Chew Tobacco: No; Hx Alcohol Use: Yes Alcohol type: wine Hx Substance Use: No Preferred Language: Taiwanese Communication Ability: Effective Communication Ability Comment: legally blind Visual Impairment: Diminished Hearing Ability: Normal Drier Required: No Beliefs That Will Affect Care: None marital status: Current Living Situation: Spouse current occupational status: disabled 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[employer] How many Children do You have: 0 How many Children do You have Comment: has 4 children Feels Safe at Home: Yes Childhood Exposure to Second-Hand Smoke: Yes Diet: regular Diet Comment: regular caffeine: Yes (diet mt dew) during the past year weight has: increased > 10 lbs Dental Care, Regularly: Yes Physical Activity Frequency: 1-2 Times per Week Physical Activity Frequency Comment: limited Seatbelt Use: always Sunscreen Use: Yes Assistive Devices: Walker Review of Systems Review of Systems: See HPI above Physical Exam Physical Exam: General: no acute distress; at bedside; non-toxic appearing; well- nourished; cooperative; SpO2 95% on RA HEENT: normocephalic, atraumatic; legally blind; hearing intact; TMs are pearly [place] bilaterally Neck: supple; trachea midline Skin: warm, dry without signs of tenting; no cyanosis; no rashes, bruising, lesions, or erythema noted CV: chest wall NTP; RRR; S1/S2 normal; no murmurs/rubs/gallops; pulses intact and symmetric at radial, DP, and PT Lungs: no acute respiratory distress; symmetrical chest wall expansion; clear breath sounds across all lung wolf w/o adventitious sounds; no wheezing ABD: Soft, NTP; BS present; no rebound/guarding; distention secondary to body habitus MSK: no tics or fasciculations; no edema noted in the LEs b/l, nonerythematous Neuro: A&Ox3; normal mood and affect; fluent speech; no focal deficits; sensation intact and symmetric in lower extremity bilaterally Results & Data Results & Data Vital Signs (Past 12 Hours) Vital Signs Temp Pulse Pulse Resp BP BP Pulse Ox 12/18/24 17:24 76 17 95 12/18/24 17:00 137/67 12/18/24 17:00 137/67 12/18/24 16:51 71 18 133/70 94 12/18/24 16:24 72 12/18/24 15:26 36.7 C 80 20 128/55 L 93 O2 Del Method 12/18/24 17:24 Room Air 12/18/24 17:00 12/18/24 17:00 12/18/24 16:51 Room Air 12/18/24 16:24 12/18/24 15:26 Room Air Laboratory Results Abnormal lab results 12/18/24 Range/Units 16:37 WBC 12.07 H (4.8-10.8) K/ul RBC 3.93 L (4.20-5.40) M/uL Hgb 11.6 L (12.0-16.0) g/dl Hct 34.9 L (37.0-47.0) % Neut # (Auto) 9.38 H (1.40-6.50) K/uL [place] # (Auto) 0.77 H (0.11-0.59) K/uL Sodium 133 L (136-145) mmol/L Anion Gap 2 L (3-11) Glucose 133 H (70-99(Fasting)) mg/dl Diagnostic Findings Chest X-Ray 12/18/24 15:28 EXAM: Radiograph of the Chest 1 View INDICATION: Weakness TECHNIQUE: Frontal view of the chest. COMPARISON: 05/11/2024 FINDINGS: Lungs and pleural spaces: No consolidation or pulmonary edema. No pleural effusion or pneumothorax. Heart: Shape and configuration within normal limits allowing for technique. Mediastinum: Normal contour. Bones/joints: Stable posterior cervical thoracic hardware. Soft tissues: No abnormality noted. No radiopaque foreign body noted. Upper abdomen: No abnormality noted. IMPRESSION: No acute cardiopulmonary disease. ACT 112: N/A Electronically signed by Kim Iraheta 12-18-2024 4:31 PM ECG Additional Comments: ECG ordered, pending Code Status & VTE Plan Code Status Full code VTE Prophylaxis Plan VTE Prophylaxis will be ordered: Yes Supervising Physician Co-Signing Physician Notes Patient seen and examined, chart reviewed, case discussed with Epifanio Farmer PA-C and I agree with the assessment and plan as above except as otherwise noted Labs and images reviewed Billy is a 64-year-old female who presents with 2 falls first during which she was able to lower herself to the ground, and second was fatigued and off balance and fell to the ground. On tx for UTI with bactrim UC +12/13 +pansensitive Klebsiella. No syncope. No evidence of GISELLA/Hyperkalemia. Suspect acute on chronic weakness due to UTI. Did have some chest discomfort improved on reasessment. trop ordered and pending. Rocephin continued. PT/OT consulted. Agree w/ above. At time of attending reassessment her chest discomfort has completely resolved and has not recurred. She is concerned about being diabetic and has not yet had a meal tray. Discussed with staff, BSG checks pending. DM diet pending, will have insulin orders activated from transfer set shortly. Agree with above PG Care Time/CCT Total # of Minutes Spent Total Time Spent with Patient: Total time spent is greater than 50% in coordination of care (as documented) at patient's floor/unit and/or counseling patient: Coding [place] [address] INT INP/OBS CARE 2/55MIN Patient Type Established Medical Decision Making Moderate Complexity Diagnoses Ambulatory dysfunction R26.2 UTI (urinary tract infection) N39.0 Recurrent falls R29.6
[2024-12-18 18:56] LABS: Troponin I High Sensitivity < 2.3 pg/ml (0-14)
[2024-12-18] MEDS ORDERED: ACETAMINOPHEN 500 MG TAB PO PRN (19:01)
[2024-12-18] MEDS: cefTRIAXone SODIUM 2,000 MG/50 ML BAG IV STA (19:14)
[2024-12-18 20:26] LABS: Appearance Urine Clear (Clear); Bacteria Urine Automated None Seen (None Seen); Bilirubin Urine Negative (Negative); Blood Urine Negative (Negative); Cast Urine Automated 0-2 /lpf (0-2); Color Urine Yellow; Epithelial Cell Urine Auto 0-2 /hpf (0-2); Glucose Urine UA Negative (Negative); Ketones Urine Trace (Negative); Leukocyte Esterase Urine Trace (Negative); Nitrite Urine Negative (Negative); Protein Urine Trace (Negative); RBC Urine Automated 0-2 /hpf (0-2); Urobilinogen Urine Negative (Negative)
[2024-12-18] MEDS ORDERED: MECLIZINE HCL 25 MG TAB PO PRN (20:47)
[2024-12-18] MEDS ORDERED: ONDANSETRON INJ 2 MG/ML 2 ML VIAL IV PRN (20:47)
[2024-12-18] MEDS ORDERED: GLUCAGON FOR INJ 1 MG VIAL SQ PRN (20:47)
[2024-12-18] MEDS ORDERED: GLUCOSE 40% GEL 15 GM TUBE PO PRN (20:47)
[2024-12-18] MEDS ORDERED: DEXTROSE 50% 50 ML SYRINGE IV PRN (20:47)
[2024-12-18] MEDS ORDERED: CARBOHYDRATES FOR HYPOGLYCEMIA PO PRN (20:47)
[2024-12-18] MEDS ORDERED: ACETAMINOPHEN 325 MG TAB PO PRN (20:47)
[2024-12-18] MEDS ORDERED: GLUCOSE 10 TAB/TUBE PO PRN (20:47)
[2024-12-18] MEDS: MELATONIN 3 MG TAB PO PRN (22:00)
[2024-12-18] MEDS: FAMOTIDINE 20 MG TAB PO SCH (22:00)
[2024-12-18] MEDS: INSULIN ASPART PER UNIT CHARGE SC SCH (22:00)
[2024-12-18] MEDS: PANTOprazole 40 MG TAB PO SCH (22:04)
[2024-12-18] MEDS: METOPROLOL SUCC 50MG EXT REL TAB PO SCH (22:04)
[2024-12-18] MEDS: ATORVASTATIN 40 MG TAB PO SCH (22:04)
[2024-12-18] MEDS: SERTRALINE HCL 50 MG TABLET PO SCH (22:04)
[2024-12-18] MEDS: traZODone HCL 100 MG TAB PO SCH (22:04)
[2024-12-18] MEDS: GABAPENTIN 600 MG TAB PO SCH (22:05)
[2024-12-18] MEDS: GABAPENTIN 100 MG CAP PO SCH (22:05)
[2024-12-18] MEDS: ENOXAPARIN INJ 40 MG/0.4 ML SYR SQ SCH (22:05)
[2024-12-18] MEDS: DORZOLAMIDE/TIMOLOL 22.3/6.8MG/ML 10 ML BTL OPB SCH (23:00)
[2024-12-19 06:56] LABS: Basophils # (auto) 0.01 K/uL (0.00-0.20); Basophils % (auto) 0.2 %; Eosinophils # (auto) 0.28 K/uL (0.00-0.50); Eosinophils % (auto) 4.7 %; Hematocrit (blood only) 30.8 % (37.0-47.0); Immature Granulocytes # (auto) 0.01 K/uL (0.01-0.20); Immature Granulocytes % (auto) 0.2 %; Lymphocytes # (auto) 2.14 K/uL (1.20-3.40); Lymphocytes % (auto) 35.8 %; Mean Corpuscular Hgb Conc 32.5 g/dL (32.0-36.0); Mean Corpuscular Volume 89.3 fL (80.0-100.0); Mean Platelet Volume 11.9 fL (9.4-12.4); Monocytes % (auto) 6.7 %; Neutrophils # (auto) 3.14 K/uL (1.40-6.50); Neutrophils % (auto) 52.4 %; Platelet Count 170 K/uL (130-400); RDW Coefficient of Variation 13.3 % (11.5-14.5); RDW Standard Deviation 43.8 fL (36.4-46.3); Red Blood Count 3.45 M/uL (4.20-5.40); White Blood Count 5.98 K/ul (4.8-10.8)
[2024-12-19 07:26] LABS: Anion Gap 3 (3-11); BUN Creatinine Ratio 16.1 (10-20); Blood Urea Nitrogen 20 mg/dl (6-23); Calcium 8.4 mg/dl (8.6-10.3); Carbon Dioxide 28 mmol/L (21-32); Chloride 103 mmol/L (98-107); Creatinine Clr Calc Pharmacy 47.9 ml/min; Glucose 130 mg/dl (70-99(Fasting)); Sodium 134 mmol/L (136-145)
[2024-12-19 07:40] VITALS: RESP 18; O2SAT 98
[2024-12-19] MEDS: OXYBUTYNIN CHLORIDE XL 5 MG TABCR PO SCH (09:47)
[2024-12-19] MEDS: lisinopril 10 MG TAB PO SCH (09:48)
[2024-12-19] MEDS: ASPIRIN 81 MG ECTAB PO SCH (09:48)
[2024-12-19 11:21] VITALS: TEMP 97.5
--- NOTE | 2024-12-19 12:16 | Electrocardiogram Report ---
Test Reason : Blood Pressure : */* mmHG Vent. Rate : 66 BPM Atrial Rate : 66 BPM P-R Int : 162 ms QRS Dur : 84 ms QT Int : 384 ms P-R-T Axes : -36 -14 62 degrees QTcB Int : 402 ms Sinus rhythm Nonspecific T wave abnormality Abnormal ECG When compared with ECG of 04-Jun-2024 14:51, Nonspecific T wave abnormality no longer evident in Inferior leads Confirmed by Harlan Dawn ([id number]) on 12/19/2024 12:16:24 PM Referred By: REFERRED SELF Confirmed By: Harlan Dawn
--- NOTE | 2024-12-19 12:47 | Discharge Summary ---
Discharge Summary Date of Service December 19, 2024 Principal Dx & Hospital Course #1 = Principal Diagnosis (1) Ambulatory dysfunction: (2) UTI (urinary tract infection): (3) Recurrent falls: Danielle Cervantes is a 64-year-old female who presented on 12/18 after sustaining 2 falls at home, likely secondary to her UTI. No LOC. Not on blood thinners. Patient reports she "grazed" the side of a food tray in the living room, but otherwise no head strike. She reports that her legs feel "rubbery" whenever she goes to stand. Patient was on Bactrim for UTI prior to hospitalization. #Recurrent falls/ambulatory dysfunction Suspect secondary to UTI/Bactrim PT/OT evaluations completed - recommend discharge home #UTI Patient was prescribed Bactrim for UTI on 12/16; d/c due to GISELLA Patient's urine culture on 12/13/2024 grew pansensitive Klebsiella variicola s/p Ceftriaxone 2000 mg IV q24h discharged on a 3 days course of cefpodoxime #Atypical chest pain/chest palpitations Patient reports that on the evening of 12/17, she developed chest pain/palpitations/SOB while trying to sleep She does report she was told she had a "irregular heartbeat" in 1997; ? A-fib She did present to the ED in May 2024 for intermittent episodes of chest pain that were brief and self-limiting; troponin negative x 2 at that time [employer] negative CXR without acute findings Continuous telemetry monitoring - no arrhythmia #T2DM Last A1c at 6.4% on 11/07/2024 Resume metformin T2DM diet BSG ACHS #Legally blind Noted Chronic stable conditions: HTNmetoprolol, lisinopril HLDatorvastatin GERDfamotidine, PPI Anxiety/depressionsertraline Disposition: Discharge home Full code T2DM diet Admission HPI Per Admitting Provider Billy is a pleasant 64-year-old female with PMH of legal blindness, T2DM, pancreatitis, esophageal dysphagia, metabolic syndrome, cardiomyopathy, HTN, and HLD. She presented via EMS on 12/18 for falls x 2 with inability to stand up. The first fall occurred shortly after waking up. Patient was sleeping in the living room, and tried to get herself up off the couch this morning. However when she stood, her legs collapsed on her, and she reports she "took herself down to the floor" gradually. She did not have anything on her way down. Paramedics were called, and they were able to get her up and left. This then occurred again around 2 PM. Patient was being assisted by her to get up to the bathroom, and her legs gave out from under her. She grazed the back of her on the TV tray in the living room on the way down. No LOC. No blood thinners. She reports that her legs feel "rubbery" whenever she stands. She ambulates with a walker at baseline and a cane as needed. Patient is currently on antibiotics (Bactrim) for a UTI. Patient took her regular morning medicines today; the only recent change medication was starting Bactrim 2 days ago for her UTI. Patient has been on Bactrim in the past for UTIs, but has never had a reaction to it. Patient sleeps with supplemental oxygen (2L NC). No CPAP at night. Additionally, the patient notes that she had chest pain and palpitations last night prior to going to bed. She had difficulty sleeping as this made it hard to breathe. She does believe she had a cardiac event back in 1997, but is unsure exactly what this was; believes it may have been called a "irregular heartbeat". No prior history of MT or heart stents. The chest pain lasted for approximately 30 minutes then subsided on its own. No radiation to the shoulders or down the arms bilaterally. Patient denies history of allergies to antibiotics such as penicillin. She denies smoking, tobacco use, recent alcohol use. She lives with her of 44 years and their 2 cats. Patient's vitals are stable at time admission. ED course: Ceftriaxone 2000 mg IV NSS 1000 mL IV ROS: Patient endorses LE weakness, lightheadedness when standing, headaches, chest pain/chest palpitations/SOB/wheezing last night (resolved), burning with urinati on, increased urinary frequency, or unsure of blood in the urine (patient is legally blind). Patient denies fever, night-sweats, rashes, bruising, tick bites, pleuritic CP, abdominal pain, and N/V/D. Discharge Exam General: no acute distress; at bedside; non-toxic appearing; well- nourished; cooperative; SpO2 95% on RA HEENT: normocephalic, atraumatic; legally blind; hearing intact; TMs are pearly [place] bilaterally Neck: supple; trachea midline Skin: warm, dry without signs of tenting; no cyanosis; no rashes, bruising, lesions, or erythema noted CV: chest wall NTP; RRR; S1/S2 normal; no murmurs/rubs/gallops; pulses intact and symmetric at radial, DP, and PT Lungs: no acute respiratory distress; symmetrical chest wall expansion; clear breath sounds across all lung wolf w/o adventitious sounds; no wheezing ABD: Soft, NTP; BS present; no rebound/guarding; distention secondary to body habitus MSK: no tics or fasciculations; no edema noted in the LEs b/l, nonerythematous Neuro: A&Ox3; normal mood and affect; fluent speech; no focal deficits; sensation intact and symmetric in lower extremity bilaterally Discharge Plan Discharge Items Patient Disposition: Home - Self-Care Reason For Visit: FALL, UTI Discharge Diagnosis: Fall Activity: Resume your previous activity Activity Comment: Follow PT/OT recommendations Non-emergency contact: Primary Care Provider Call non-emergency contact if: you have any medication questions Follow-up/Referrals: Whit Kline DO [Primary Care Provider] - Diet: Regular Addtl Attending Provider Instructions: Follow up with primary care in 5-7 days Pending Studies at Discharge: No Stand-Alone Forms: [employer], Smoking Cessation Medications and DC Order Prescriptions: New cefpodoxime 200 mg tablet 200 mg PO BID Qty: 6 0RF Rx Instructions: must administer with a meal/food Continued (DME) Oxygen Home Liters Per Minute See Rx Instructions .Route Qty: 1 0RF Rx Instructions: QHS 2LPM Overnight (DME) insulin syringe-needle U-100 [BD Veo Insulin Syringe UF] 1/2 mL 31 gauge x 15/64" syringe See Rx Instructions .Route Qty: 200 3RF Rx Instructions: Use 2 per day sertraline 50 mg tablet 50 mg PO HS Qty: 90 2RF (DME) Dexcom G7 Sensor Device See Rx Instructions .Route Qty: 7 3RF Rx Instructions: As directed famotidine 20 mg tablet 20 mg PO HS Qty: 90 1RF meclizine 25 mg tablet 25 mg PO QID PRN (Reason: dizziness) Qty: 90 1RF Rx Instructions: PER PT "TAKE EVERY HS". metformin 500 mg tablet 500 mg PO BID Qty: 60 5RF metoprolol succinate 100 mg tablet extended release 24 hr 50 mg PO HS Qty: 90 1RF atorvastatin 40 mg tablet 40 mg PO HS Qty: 30 5RF gabapentin 100 mg capsule 100 mg PO TID Qty: 90 4RF Rx Instructions: TOTAL DOSE 700 MG--TAKES WITH 2-300 MG CAPS. gabapentin 300 mg capsule 600 mg PO TID Qty: 180 1RF Rx Instructions: TOTAL DOSE 700 MG--TAKES WITH 100 MG CAP. levocetirizine [Xyzal] 5 mg tablet 5 mg PO HS Qty: 30 5RF omeprazole 20 mg capsule,delayed release(DR/EC) 20 mg PO BID Qty: 180 1RF trazodone 50 mg tablet 100 mg PO HS Qty: 30 5RF mecobalamin (vitamin B12) 1,000 mcg tablet,chewable 1,000 mcg PO DAILY (DME) Depend Underwear For Women XL Misc See Rx Instructions .Route Qty: 68 5RF Rx Instructions: As directed nystatin 100,000 unit/gram cream 1 applic TOP BID PRN (Reason: Skin Irritation) Qty: 30 2RF solifenacin [Vesicare] 5 mg tablet 5 mg PO DAILY Qty: 90 3RF lisinopril 10 mg tablet 10 mg PO QAM Qty: 90 3RF multivitamin Tablet 1 tab PO QPM aspirin [Rahul Low Dose Aspirin] 81 mg Tablet,Delayed Release (Dr/Ec) 81 mg PO QAM PreserVision Lutein 226 mg-200 unit -5 mg-0.8 mg Capsule 1 cap PO HS dorzolamide-timolol 22.3-6.8 mg/mL drops 1 drp ophthalmic (eye) BID melatonin 3 mg Tablet 3 mg PO HS PRN (Reason: Sleep) cholecalciferol (vitamin D3) [Vitamin D3] 25 mcg (1,000 unit) Capsule 0 mcg PO DAILY Rx Instructions: PT/SPOUSE UNSURE OF STRENGTH Bwxzesq-Ziegkkslz-Taal Complex 167 mg calcium- 83 mg-5 mg Capsule 1 cap PO DAILY Humalog Mix 75-25(U-100)Insuln 100 unit/mL (75-25) suspension 10 unit subcut BID Rx Instructions: INJECT 10 UNITS SUBCUTANEOUSLY TWICE DAILY *NEEDS RX* dulaglutide 1.5 mg/0.5 mL pen injector 1.5 mg subcut WK Rx Instructions: SUNDAYS Discontinued sulfamethoxazole-trimethoprim [Bactrim DS] 800-160 mg tablet 1 tab PO BID 7 Days Qty: 14 0RF Rx Instructions: STARTED 12/16/24 FOR 7 DAYS Admission Data Admit Date/Time: 12/18/24 18:26 Attending Provider: Tamanna Last Admit Provider: Rocky Loera Primary Care Provider: Whit Kline Other Providers: Rocky Loera Hospital Stay Data Consultations 12/18/24 17:34 ED Decision to Admit Stat Pending Results Patient Have Any Pending Studies at Discharge: No Discharge Instructions Given to Patient (Per Discharging Provider) Follow up with primary care in 5-7 days Total Time Total Time Spent Total Time Spent (In Minutes): 35 min Coding Level of Care Code 71946 INP/OBS DISCH >30 MIN Diagnoses Ambulatory dysfunction R26.2 UTI (urinary tract infection) N39.0 Recurrent falls R29.6
[2024-12-19 14:21] VITALS: BP 117/72
[2024-12-19 14:23] VITALS: PULSE 65
[2024-12-19] MEDS ORDERED: cefTRIAXone SODIUM 2,000 MG/50 ML BAG IV SCH (19:00)
[2024-12-19] MEDS ORDERED: MECLIZINE HCL 25 MG TAB PO SCH (21:00)
[2024-12-19] MEDS ORDERED: CETIRIZINE HCL 10 MG TABLET PO SCH (21:00)
== END 2024-12-19 15:22 | disposition home or self-care (01) | DRG 690 ==
LOC: ED 15:20 → SUATTDRO 18:26 → INTOOBSV 18:26 → 2N 18:26